=== PATIENT | female | born 1940 | race Hispanic/Latino ===

== ENCOUNTER 2018-12-27 18:16 | Inpatient (IN) | payer MEDICARE | END 2019-01-03 18:35 | LOC: EDH 18:16 → 2DH 12-28 00:39 → EDHIP 20:30 | DX: I21.4 Non-ST elevation (NSTEMI) myocardial infarction (principal); J12.1 Respiratory syncytial virus pneumonia; J44.0 Chronic obstructive pulmonary disease with (acute) lower respiratory infection; J44.1 Chronic obstructive pulmonary disease with (acute) exacerbation; J20.9 Acute bronchitis, unspecified; E11.51 Type 2 diabetes mellitus with diabetic peripheral angiopathy without gangrene; E11.22 Type 2 diabetes mellitus with diabetic chronic kidney disease; N18.2 Chronic kidney disease, stage 2 (mild); I12.9 Hypertensive chronic kidney disease with stage 1 through stage 4 chronic kidney disease, or unspecified chronic kidney disease; E66.9 Obesity, unspecified; E78.5 Hyperlipidemia, unspecified; D64.9 Anemia, unspecified; D50.9 Iron deficiency anemia, unspecified ==

== ENCOUNTER 2019-04-10 21:26 | Emergency (ER) | payer MEDICARE ==
[~2019-04-10 21:26] MED LIST: ALBU8.5H8 IH; ATEN25TA PO; BUDE10.22 IH; BUSP5TAB3 PO; CEPH500C2 PO; CILO100T PO; D3 PO; ESOM40CA54 PO; GUAI-1063 PO; INSU100I15 SQ; INSU100I21 SQ; LEVA1.2542 IH; LEVO125T11 PO; LOSA25TA41 PO; MECL-129 PO; MEDROL PO; METF-446 PO; OXYB5TAB PO; SERT25TA5 PO; TRAM50TA4 PO
[2019-04-10 22:14] LABS: BASOPHILS % (AUTO) 0.5 % (0.0-5.0); EOSINOPHILS % (AUTO) 2.4 % (0.0-8.0); HEMATOCRIT 33.9 % (36-48); MEAN CORPUSCULAR HEMOGLOBIN 26.7 pg (27.0-33.0); MEAN CORPUSCULAR HGB CONC 32.8 g/dL (32.0-36.0); MEAN CORPUSCULAR VOLUME 81.4 fL (79-99); MONOCYTES % (AUTO) 6.2 % (3.0-13.0); NEUTROPHILS % (AUTO) 65.9 % (40.0-77.0); PLATELET COUNT (AUTO) 230 K/uL (130-400); RED BLOOD CELL COUNT(AUTO) 4.17 MIL/uL (4.00-5.50); RED CELL DISTRIBUTION WIDTH 14.6 % (11.0-15.5); WHITE BLOOD COUNT (AUTO) 10.6 K/uL (4.8-10.8)
[2019-04-10 22:32] LABS: CREATININE 1.1 mg/dL (0.5-1.5); POTASSIUM 4.4 mmol/L (3.5-5.1)
[2019-04-10 22:34] LABS: INR 0.91 (0.85-1.15); PARTIAL THROMBOPLASTIN TIME 28.4 SEC (26.3-35.5); PROTHROMBIN TIME 9.6 SEC (9.6-11.6)
[2019-04-10 22:37] LABS: ALBUMIN 3.4 g/dL (3.5-5.0); BILIRUBIN,TOTAL 0.2 mg/dL (0.2-1.0)
[2019-04-10 22:42] LABS: B-TYPE NATRIURETIC PEPTIDE 41 pg/mL (0-100)
== END 2019-04-11 00:01 | disposition home or self-care (01) ==
LOC: EDH 21:26
DX: E11.51 Type 2 diabetes mellitus with diabetic peripheral angiopathy without gangrene (principal); R20.2 Paresthesia of skin; I10 Essential (primary) hypertension; I25.10 Atherosclerotic heart disease of native coronary artery without angina pectoris; E07.9 Disorder of thyroid, unspecified; E78.5 Hyperlipidemia, unspecified; E11.9 Type 2 diabetes mellitus without complications
CPT/HCPCS: 36415; 70450; 71045; 72125; 80053; 82550; 83880; 84484; 85025; 85610; 85730; 93005

== ENCOUNTER 2019-04-21 09:25 | Day surgery (SDC) | payer MEDICARE ==
[2019-04-17 11:29] VITALS: BP 122/56
[2019-04-17 11:30] VITALS: BP 122/56
[2019-04-17 11:33] LABS: BASOPHILS % (AUTO) 0.3 % (0.0-5.0); HEMATOCRIT 33.2 % (36-48); MEAN CORPUSCULAR HEMOGLOBIN 26.6 pg (27.0-33.0); MEAN CORPUSCULAR HGB CONC 32.6 g/dL (32.0-36.0); MEAN CORPUSCULAR VOLUME 81.5 fL (79-99); MONOCYTES % (AUTO) 6.8 % (3.0-13.0); NEUTROPHILS % (AUTO) 70.9 % (40.0-77.0); PLATELET COUNT (AUTO) 254 K/uL (130-400); RED BLOOD CELL COUNT(AUTO) 4.08 MIL/uL (4.00-5.50); RED CELL DISTRIBUTION WIDTH 14.7 % (11.0-15.5); WHITE BLOOD COUNT (AUTO) 11.4 K/uL (4.8-10.8)
[2019-04-17 11:35] LABS: CREATININE 1.1 mg/dL (0.5-1.5); POTASSIUM 4.3 mmol/L (3.5-5.1)
[2019-04-17 11:45] LABS: INR 0.9 (0.85-1.15); PARTIAL THROMBOPLASTIN TIME 29.1 SEC (26.3-35.5); PROTHROMBIN TIME 9.5 SEC (9.6-11.6)
[2019-04-17 11:56] LABS: APPEARANCE,URINE Clear (CLEAR); BILIRUBIN,URINE Negative (NEGATIVE); COLOR,URINE Yellow (YELLOW); GLUCOSE, URINE (UA) Negative (NEGATIVE); KETONES,URINE Trace mg/dL (NEGATIVE); LEUKOCYTE ESTERASE ,URINE Small (NEGATIVE); NITRATE,URINE Negative (NEGATIVE); OCCULT BLOOD,URINE Negative (NEGATIVE); PROTEIN,URINE Negative (NEGATIVE)
[2019-04-17 12:02] LABS: BACTERIA,URINE Few /HPF (None Seen); RBC,URINE 0-1 /HPF (0-1); SQUAMOUS EPITHELIAL CELL,UR Few /HPF (0-2); WBC,URINE 0-1 /HPF (0-1)
--- NOTE | 2019-04-18 10:44 | NUR ---
LABS ABNORMAL UA, AND WBC REPORTED TO IGOR WALSH, NO FURTHER ORDERS GIVEN,
[~2019-04-21] VITALS: Ht 162.6 cm; Wt 85.7 kg
[2019-04-21] VITALS (12 sets, daily range): BP systolic 123–163; BP diastolic 46–74
[~2019-04-21 09:25] MED LIST changes: -ATEN25TA PO; +ATEN50TA PO; -CEPH500C2 PO; +CHOL50004 PO; -D3 PO; -GUAI-1063 PO; -LEVA1.2542 IH; +LIFI1DRO OU; +MECL-111 PO; -MECL-129 PO; -MEDROL PO; +METF-444 PO; -METF-446 PO; +THEO400T3 PO; +UMEC1DIS IH
[2019-04-21] MEDS ORDERED: SODIUM CHLORIDE 0.9% 1000ML 1,000 ML IV ONE (10:56)
[2019-04-21] MEDS ORDERED: IOHEXOL 350 MG/ML 100ML INFUS..BTL IV ONE (13:26)
[2019-04-21] MEDS ORDERED: NITROGLYCERIN 5 MG/ML 10 ML VIAL IV ONE (13:26)
[2019-04-21] MEDS ORDERED: LIDOCAINE HCL 2% 20ML ONE (13:26)
[2019-04-21] MEDS ORDERED: IOHEXOL-350 50ML VIAL IV ONE (13:26)
[2019-04-21] MEDS ORDERED: HEPARIN SODIUM 1000UNIT/ML 10ML VIAL ONE (13:37)
[2019-04-21] MEDS ORDERED: VERAPAMIL HCL 2.5 MG/ML VIAL ONE (13:37)
[2019-04-21] MEDS ORDERED: MIDAZOLAM HCL 1 MG/ML 2ML VIAL ONE (14:06)
[2019-04-21] MEDS ORDERED: FENTANYL CITRATE PF 50 MCG/1 ML 2ML VIAL ONE (14:13)
[2019-04-21] MEDS ORDERED: BIVALIRUDIN 250 MG/VIAL IV ONE (14:39)
[2019-04-21] MEDS ORDERED: SODIUM CHLORIDE 0.9% 1000ML 1,000 ML IV SCH (14:58)
[2019-04-21] MEDS ORDERED: GLUCAGON 1MG KIT 1 MG ML IM PRN (15:00)
[2019-04-21] MEDS ORDERED: DEXTROSE 50%-WATER 50 ML DISP.SYRIN IV PRN (15:00)
--- NOTE | 2019-04-21 15:15 | NUR ---
PATIENT RETURNED FROM TRANSLITERATOR IN NO DISTRESS, RIGHT RADIAL BAND SHOWS NO ACTIVE BLEEDING NOTED.DR. LEWIS IN TO TALK TO PATIENT AND FAMILY. PLAN DISCUSSED WITH PATIENT AND FAMILY, THEY VERBALIZED UNDERSTANDING. PER PATIENT AND FAMILY THEY WANT TO LEAVE TODAY AND WILL GO SEE DR. LEWSI TOMORROW. CALLED ALEXANDER MERRITT RN OF DR. ALEXANDER, PT TO GO HOME AND TO BE SEEN OUT PATIENT. BOTH PATIENT AND FAMILY VERBALIZED UNDERSTANDING OF PLAN TO GO SEE DR. LEWIS TOMORROW AND TO SEE DR. ALEXANDER OU PATIENT.
--- NOTE | 2019-04-21 16:25 | NUR ---
REMOVED 2 ML OF FROM RIGHT RADIAL BAND, NO SIGNS OF BLEEDING OR HEMATOMA TO RIGHT WRIST.
--- NOTE | 2019-04-21 16:40 | NUR ---
REMOVED 2 ML OF FROM RIGHT RADIAL BAND, NO SIGNS OF BLEEDING OR HEMATOMA TO RIGHT WRIST.
--- NOTE | 2019-04-21 16:55 | NUR ---
REMOVED 2 ML OF AIR FROM RIGHT RADIAL BAND, NO SIGNS OF BLEEDING OR HEMATOMA TO RIGHT WRIST.
--- NOTE | 2019-04-21 17:10 | NUR ---
REMOVED 2 ML OF AIR FROM RIGHT RADIAL BAND, NO SIGNS OF BLEEDING OR HEMATOMA TO RIGHT WRIST.
--- NOTE | 2019-04-21 17:25 | NUR ---
REMOVED 2 ML OF FROM RIGHT RADIAL BAND, NO SIGNS OF BLEEDING OR HEMATOMA TO RIGHT WRIST.
--- NOTE | 2019-04-21 17:40 | NUR ---
REMOVED 2 ML OF FROM RIGHT RADIAL BAND, NO SIGNS OF BLEEDING OR HEMATOMA TO RIGHT WRIST.
--- NOTE | 2019-04-21 17:55 | NUR ---
REMOVED 2 ML OF FROM RIGHT RADIAL BAND, NO SIGNS OF BLEEDING OR HEMATOMA TO RIGHT WRIST.
--- NOTE | 2019-04-21 18:10 | NUR ---
REMOVED 2 ML OF FROM RIGHT RADIAL BAND, NO SIGNS OF BLEEDING OR HEMATOMA TO RIGHT WRIST.
--- NOTE | 2019-04-21 18:30 | NUR ---
DRESSING TO RIGHT WRIST SHOWS NO ACTIVE BLEEDING OR HEMATOMA. DRESSING IS CLEAN AND DRY. PATIENT STATES FEELING WELL. NO CHEST PAIN, NO SOB
--- NOTE | 2019-04-21 19:00 | NUR ---
DRESSING TO RIGHT WRIST IS CLEAN AND DRY, NI SIGNS OF ACTIVE BLEEDING OR HEMATOMA.
== END 2019-04-21 19:27 | disposition home or self-care (01) ==
LOC: DAH 09:25
PROVIDERS: ATTEND Internal Medicine Cardiovascular Disease
DX: I25.118 Atherosclerotic heart disease of native coronary artery with other forms of angina pectoris (principal); E78.00 Pure hypercholesterolemia, unspecified; K21.9 Gastro-esophageal reflux disease without esophagitis; E11.40 Type 2 diabetes mellitus with diabetic neuropathy, unspecified; I73.9 Peripheral vascular disease, unspecified; J44.9 Chronic obstructive pulmonary disease, unspecified; E11.22 Type 2 diabetes mellitus with diabetic chronic kidney disease; I12.9 Hypertensive chronic kidney disease with stage 1 through stage 4 chronic kidney disease, or unspecified chronic kidney disease; N18.9 Chronic kidney disease, unspecified; Z98.51 Tubal ligation status; Z79.899 Other long term (current) drug therapy; Z95.5 Presence of coronary angioplasty implant and graft; Z98.890 Other specified postprocedural states; Z87.891 Personal history of nicotine dependence; Z79.84 Long term (current) use of oral hypoglycemic drugs; Z82.5 Family history of asthma and other chronic lower respiratory diseases; Z82.49 Family history of ischemic heart disease and other diseases of the circulatory system; Z83.3 Family history of diabetes mellitus; Z82.3 Family history of stroke
CPT/HCPCS: 36415; 71045; 80048; 81001; 82948 ×2; 85025; 85610; 85730; 93005; 93458; A4606; A4649; C1769; C1894; J1644 ×2; J2250; J3010; J3490 ×3; J7030; Q9965 ×2; Q9967 ×2; 99156; 99157; J0583

== ENCOUNTER 2019-07-11 07:51 | Emergency (ER) | payer MEDICARE ==
[~2019-07-11 07:51] MED LIST changes: +ASPI-891 PO; -ATEN50TA PO; +ATOR20TA65 PO; -BUDE10.22 IH; -CHOL50004 PO; -CILO100T PO; +FURO20TA6 PO; -LIFI1DRO OU; -LOSA25TA41 PO; -MECL-111 PO; +METO25 PO; -OXYB5TAB PO; +POTA20TA12 PO; +TICA90TA PO
[2019-07-11] MEDS ORDERED: PROMETHAZINE HCL 25 MG/ML 1ML AMPULE IM ONE (07:52)
[2019-07-11 08:15] LABS: BASOPHILS % (AUTO) 0.7 % (0.0-5.0); EOSINOPHILS % (AUTO) 1.7 % (0.0-8.0); HEMATOCRIT 34.8 % (36-48); LYMPHOCYTES % (AUTO) 16.4 % (21.0-51.0); MEAN CORPUSCULAR HGB CONC 33.1 g/dL (32.0-36.0); MEAN CORPUSCULAR VOLUME 78.6 fL (79-99); MONOCYTES % (AUTO) 5.9 % (3.0-13.0); NEUTROPHILS % (AUTO) 75.3 % (40.0-77.0); PLATELET COUNT (AUTO) 204 K/uL (130-400); RED BLOOD CELL COUNT(AUTO) 4.43 MIL/uL (4.00-5.50); RED CELL DISTRIBUTION WIDTH 14.9 % (11.0-15.5); WHITE BLOOD COUNT (AUTO) 10.2 K/uL (4.8-10.8)
[2019-07-11] MEDS ORDERED: MECLIZINE HCL 25 MG TABLET ONE (08:36)
[2019-07-11 09:01] LABS: CREATININE 0.9 mg/dL (0.5-1.5); POTASSIUM 4.2 mmol/L (3.5-5.1)
[2019-07-11 09:08] LABS: ALBUMIN 3.1 g/dL (3.5-5.0); BILIRUBIN,TOTAL 0.5 mg/dL (0.2-1.0)
== END 2019-07-11 10:07 | disposition home or self-care (01) ==
LOC: EDH 07:51
DX: H81.10 Benign paroxysmal vertigo, unspecified ear (principal); E11.9 Type 2 diabetes mellitus without complications; E78.5 Hyperlipidemia, unspecified; I10 Essential (primary) hypertension; E07.9 Disorder of thyroid, unspecified; F32.9 Major depressive disorder, single episode, unspecified; I25.10 Atherosclerotic heart disease of native coronary artery without angina pectoris
CPT/HCPCS: 36415; 80053; 82550; 84484; 85025; 93005; 96372; 99285; J2550

== ENCOUNTER → 2019-07-16 | Outpatient (CLI) | payer MEDICARE | END | disposition home or self-care (01) | LOC: OIH 13:12 | PROVIDERS: ATTEND Internal Medicine Cardiovascular Disease | DX: I11.0 Hypertensive heart disease with heart failure (principal); I50.20 Unspecified systolic (congestive) heart failure; I20.1 Angina pectoris with documented spasm; M41.84 Other forms of scoliosis, thoracic region | CPT/HCPCS: 71046 ==

== ENCOUNTER → 2019-09-27 | Outpatient (CLI) | payer MEDICARE | END | disposition home or self-care (01) | LOC: OIH 14:20 | PROVIDERS: ATTEND Internal Medicine Cardiovascular Disease | DX: I21.01 ST elevation (STEMI) myocardial infarction involving left main coronary artery (principal); Z95.1 Presence of aortocoronary bypass graft | CPT/HCPCS: 93306 ==

== ENCOUNTER 2019-10-06 08:22 | Emergency (ER) | payer MEDICARE ==
[2019-10-06 08:58] LABS: BASOPHILS % (AUTO) 0.4 % (0.0-5.0); EOSINOPHILS % (AUTO) 1.1 % (0.0-8.0); HEMATOCRIT 33.3 % (36-48); LYMPHOCYTES % (AUTO) 18.3 % (21.0-51.0); MEAN CORPUSCULAR HEMOGLOBIN 25.1 pg (27.0-33.0); MEAN CORPUSCULAR HGB CONC 32.7 g/dL (32.0-36.0); MEAN CORPUSCULAR VOLUME 76.7 fL (79-99); MONOCYTES % (AUTO) 6.5 % (3.0-13.0); NEUTROPHILS % (AUTO) 73.7 % (40.0-77.0); NUCLEATED RED BLOOD CELLS 0.1 % (0.0-0.19); PLATELET COUNT (AUTO) 252 K/uL (130-400); RED BLOOD CELL COUNT(AUTO) 4.35 MIL/uL (4.00-5.50); RED CELL DISTRIBUTION WIDTH 15.3 % (11.0-15.5); WHITE BLOOD COUNT (AUTO) 11.4 K/uL (4.8-10.8)
[2019-10-06 09:13] LABS: INR 0.96 (0.85-1.15); PARTIAL THROMBOPLASTIN TIME 25.9 SEC (26.3-35.5); PROTHROMBIN TIME 10.1 SEC (9.6-11.6)
[2019-10-06 09:15] LABS: POTASSIUM 3.8 mmol/L (3.5-5.1)
[2019-10-06 09:16] LABS: B-TYPE NATRIURETIC PEPTIDE 90 pg/mL (0-100)
[2019-10-06 09:19] LABS: ALBUMIN 3.2 g/dL (3.5-5.0); BILIRUBIN,TOTAL 0.4 mg/dL (0.2-1.0); TOTAL PROTEIN, SERUM 7.3 g/dL (6.0-8.3)
[2019-10-06] MEDS ORDERED: KETOROLAC TROMETHAMINE 15MG/ML ONE (09:54)
[2019-10-06] MEDS ORDERED: CYCLOBENZAPRINE HCL 10 MG TABLET ONE (09:55)
== END 2019-10-06 10:58 | disposition home or self-care (01) ==
LOC: EDH 08:22
DX: M50.30 Other cervical disc degeneration, unspecified cervical region (principal); E11.9 Type 2 diabetes mellitus without complications; M25.512 Pain in left shoulder; I25.10 Atherosclerotic heart disease of native coronary artery without angina pectoris; E78.5 Hyperlipidemia, unspecified; I10 Essential (primary) hypertension; Z98.890 Other specified postprocedural states; Z95.1 Presence of aortocoronary bypass graft; Z87.891 Personal history of nicotine dependence; Z88.8 Allergy status to other drugs, medicaments and biological substances
CPT/HCPCS: 36415; 71045; 72125; 80053; 82550; 83880; 84484; 85025; 85610; 85730; 93005; 96374; 99285; J1885

== ENCOUNTER 2019-10-26 10:24 | Emergency (ER) | payer MEDICARE ==
[2019-10-26] MEDS ORDERED: DIAZEPAM 2 MG TAB ONE (10:35)
[2019-10-26] MEDS ORDERED: KETOROLAC TROMETHAMINE 30MG/ML ONE (10:35)
[2019-10-26] MEDS ORDERED: CYCLOBENZAPRINE HCL 10 MG TABLET ONE (11:40)
== END 2019-10-26 12:28 | disposition home or self-care (01) ==
LOC: EDH 10:24
DX: M25.512 Pain in left shoulder (principal); E11.9 Type 2 diabetes mellitus without complications; E78.5 Hyperlipidemia, unspecified; I10 Essential (primary) hypertension; I25.10 Atherosclerotic heart disease of native coronary artery without angina pectoris; F32.9 Major depressive disorder, single episode, unspecified; Z98.890 Other specified postprocedural states; Z87.891 Personal history of nicotine dependence; Z88.6 Allergy status to analgesic agent
CPT/HCPCS: 93005; 96372; 99283; J1885; 96374

== ENCOUNTER → 2020-10-12 | Outpatient (CLI) | payer MEDICARE | END | disposition home or self-care (01) | LOC: SHCH 10:31 | PROVIDERS: ATTEND Internal Medicine Cardiovascular Disease | DX: I65.23 Occlusion and stenosis of bilateral carotid arteries (principal) | CPT/HCPCS: 93880 ==

== ENCOUNTER → 2021-03-15 | Outpatient (CLI) | payer MEDICARE ==
[~2021-03-15] MED LIST changes: +SERT-438 PO; -SERT25TA5 PO
== END | disposition home or self-care (01) ==
LOC: SHCH 13:16
PROVIDERS: ATTEND Internal Medicine Cardiovascular Disease
DX: R60.9 Edema, unspecified (principal)
CPT/HCPCS: 93970

== ENCOUNTER 2022-02-10 14:28 | Emergency (ER) | payer OTHER, MEDICARE ==
[~2022-02-10] VITALS: Ht 152.4 cm; Wt 90.7 kg
[~2022-02-10 14:28] MED LIST changes: +POTA-192 PO; -POTA20TA12 PO
[2022-02-10 16:01] VITALS: BP 115/65
== END 2022-02-10 16:02 | disposition home or self-care (01) ==
LOC: EDH 14:28
DX: S30.0XXA Contusion of lower back and pelvis, initial encounter (principal); M85.80 Other specified disorders of bone density and structure, unspecified site; E11.9 Type 2 diabetes mellitus without complications; E78.00 Pure hypercholesterolemia, unspecified; I10 Essential (primary) hypertension; Z79.82 Long term (current) use of aspirin; Z79.84 Long term (current) use of oral hypoglycemic drugs; Z79.899 Other long term (current) drug therapy; Z79.4 Long term (current) use of insulin; Z98.890 Other specified postprocedural states; W05.0XXA Fall from non-moving wheelchair, initial encounter; Y93.89 Activity, other specified; Y92.89 Other specified places as the place of occurrence of the external cause; Y99.8 Other external cause status
CPT/HCPCS: 72100; 72220

== ENCOUNTER 2022-10-21 11:23 | Emergency (ER) | payer OTHER, MEDICARE ==
[~2022-10-21] VITALS: Ht 167.6 cm; Wt 68.0 kg
[2022-10-21 11:25] VITALS: BP 15/18
[2022-10-21 11:49] LABS: BASOPHILS % (AUTO) 0.3 % (0.0-5.0); EOSINOPHILS % (AUTO) 1.2 % (0.0-8.0); HEMATOCRIT 37.7 % (36-48); LYMPHOCYTES % (AUTO) 10.5 % (21.0-51.0); MEAN CORPUSCULAR HEMOGLOBIN 19.7 pg (27.0-33.0); MEAN CORPUSCULAR HGB CONC 27.9 g/dL (32.0-36.0); MEAN CORPUSCULAR VOLUME 70.6 fL (79-99); MONOCYTES % (AUTO) 5.6 % (3.0-13.0); PLATELET COUNT (AUTO) 222 K/uL (130-400); RED BLOOD CELL COUNT(AUTO) 5.34 MIL/uL (4.00-5.50); RED CELL DISTRIBUTION WIDTH 18.6 % (11.0-15.5); WHITE BLOOD COUNT (AUTO) 11.3 K/uL (4.8-10.8)
[2022-10-21 11:56] LABS: POTASSIUM 3.8 mmol/L (3.5-5.1)
[2022-10-21 12:06] LABS: ALBUMIN 3.2 g/dL (3.5-5.0); TOTAL PROTEIN, SERUM 7.5 g/dL (6.0-8.3)
[2022-10-21 12:49] LABS: APPEARANCE,URINE CLOUDY (CLEAR); BILIRUBIN,URINE NEGATIVE (NEGATIVE); COLOR,URINE LIGHT-YELLOW (YELLOW); GLUCOSE, URINE (UA) >=1000 mg/dL (NEGATIVE); KETONES,URINE NEGATIVE (NEGATIVE); LEUKOCYTE ESTERASE ,URINE 500 Leu/uL (NEGATIVE); NITRATE,URINE 2+ (NEGATIVE); OCCULT BLOOD,URINE NEGATIVE (NEGATIVE); PROTEIN,URINE NEGATIVE (NEGATIVE); UROBILINOGEN,URINE 0.2 mg/dL (0.2-1.0)
[2022-10-21] MEDS ORDERED: TRAMADOL HCL 50 MG TABLET PO ONE (13:00)
[2022-10-21] MEDS ORDERED: MACR100 PO (13:08)
[2022-10-21 13:12] LABS: BACTERIA,URINE MOD /HPF (None Seen); MUCUS,URINE RARE LPF (None Seen); SQUAMOUS EPITHELIAL CELL,UR RARE /HPF (0-2); WBC,URINE >100 /HPF (0-1)
== END 2022-10-21 13:25 | disposition home or self-care (01) ==
LOC: EDH 11:23
DX: N39.0 Urinary tract infection, site not specified (principal); E11.9 Type 2 diabetes mellitus without complications; E78.00 Pure hypercholesterolemia, unspecified; I10 Essential (primary) hypertension; Z79.82 Long term (current) use of aspirin; Z79.84 Long term (current) use of oral hypoglycemic drugs; Z95.1 Presence of aortocoronary bypass graft
CPT/HCPCS: 36415; 80053; 81001; 84484; 85025; 87077; 87088; 87186; 93005

== ENCOUNTER 2022-10-21 14:07 | Emergency (ER) | payer OTHER, MEDICARE ==
[~2022-10-21] VITALS: Ht 165.1 cm; Wt 81.6 kg
[~2022-10-21 14:07] MED LIST changes: +MACR100 PO
[2022-10-21] MEDS ORDERED: MORPHINE 4 MG SYG IM ONE (17:00)
[2022-10-21] MEDS ORDERED: ONDANSETRON ODT 4MG TAB SL ONE (17:00)
[2022-10-21 18:44] VITALS: BP 159/75
== END 2022-10-21 18:50 | disposition home or self-care (01) ==
LOC: EDH 14:07
DX: N39.0 Urinary tract infection, site not specified (principal); M19.90 Unspecified osteoarthritis, unspecified site; E11.40 Type 2 diabetes mellitus with diabetic neuropathy, unspecified; E78.00 Pure hypercholesterolemia, unspecified; G89.29 Other chronic pain; I10 Essential (primary) hypertension; Z79.4 Long term (current) use of insulin; Z79.82 Long term (current) use of aspirin; Z79.84 Long term (current) use of oral hypoglycemic drugs; Z95.1 Presence of aortocoronary bypass graft
CPT/HCPCS: 96372; 99283; J2270

== ENCOUNTER 2023-02-12 12:10 | Emergency (ER) | payer OTHER, MEDICARE ==
[~2023-02-12] VITALS: Ht 165.1 cm; Wt 79.4 kg
[~2023-02-12 12:10] MED LIST changes: -INSU100I21 SQ; +INSU100I22 SQ
[2023-02-12 13:46] LABS: BASOPHILS % (AUTO) 0.3 % (0.0-5.0); EOSINOPHILS % (AUTO) 1.3 % (0.0-8.0); HEMATOCRIT 36.7 % (36-48); LYMPHOCYTES % (AUTO) 14.7 % (21.0-51.0); MEAN CORPUSCULAR HEMOGLOBIN 20.3 pg (27.0-33.0); MEAN CORPUSCULAR HGB CONC 28.3 g/dL (32.0-36.0); MEAN CORPUSCULAR VOLUME 71.5 fL (79-99); MONOCYTES % (AUTO) 4.9 % (3.0-13.0); NEUTROPHILS % (AUTO) 78.4 % (40.0-77.0); PLATELET COUNT (AUTO) 235 K/uL (130-400); RED BLOOD CELL COUNT(AUTO) 5.13 MIL/uL (4.00-5.50); RED CELL DISTRIBUTION WIDTH 18.9 % (11.0-15.5); WHITE BLOOD COUNT (AUTO) 9.3 K/uL (4.8-10.8)
[2023-02-12] MEDS ORDERED: 0.9%NACL 1000ML 1,000 ML IV ONE (14:00)
[2023-02-12 14:03] LABS: ALBUMIN 3.4 g/dL (3.5-5.0); MAGNESIUM 1.8 mg/dL (1.80-2.40); POTASSIUM 4.2 mmol/L (3.5-5.1); TOTAL PROTEIN, SERUM 7.5 g/dL (6.0-8.3)
[2023-02-12 14:06] LABS: APPEARANCE,URINE CLEAR (CLEAR); BILIRUBIN,URINE NEGATIVE (NEGATIVE); COLOR,URINE COLORLESS (YELLOW); GLUCOSE, URINE (UA) >=1000 mg/dL (NEGATIVE); KETONES,URINE NEGATIVE (NEGATIVE); LEUKOCYTE ESTERASE ,URINE NEGATIVE Leu/uL (NEGATIVE); NITRATE,URINE NEGATIVE (NEGATIVE); OCCULT BLOOD,URINE NEGATIVE (NEGATIVE); PH,URINE 7.5 (5.0-8.0); PROTEIN,URINE NEGATIVE (NEGATIVE); UROBILINOGEN,URINE 0.2 mg/dL (0.2-1.0)
[2023-02-12] MEDS ORDERED: ZOSYN 3.375GM +NS 50ML IVPB ONE (16:35)
[2023-02-12] MEDS ORDERED: CEPH500B PO (17:12)
[2023-02-12 19:24] VITALS: BP 132/50
== END 2023-02-12 17:48 | disposition home or self-care (01) ==
LOC: EDH 12:10
DX: E86.9 Volume depletion, unspecified (principal); R53.1 Weakness; E87.20 Acidosis, unspecified; I10 Essential (primary) hypertension; E11.9 Type 2 diabetes mellitus without complications; E78.00 Pure hypercholesterolemia, unspecified; M19.90 Unspecified osteoarthritis, unspecified site; Z20.822 Contact with and (suspected) exposure to COVID-19; Z79.82 Long term (current) use of aspirin; Z79.84 Long term (current) use of oral hypoglycemic drugs; Z79.899 Other long term (current) drug therapy; Z95.1 Presence of aortocoronary bypass graft; Z90.89 Acquired absence of other organs; Z98.890 Other specified postprocedural states
CPT/HCPCS: 99285; 83735; 84484; 80053; 85025; 87040 ×2; 87088; 87804 ×2; 83605 ×2; 81001; 36415; 87635; 71045; 96360; 93005; C9803; J7030

== ENCOUNTER 2023-06-17 16:00 | Emergency (ER) | payer OTHER, MEDICARE ==
[~2023-06-17 16:00] MED LIST changes: +ACETAMINOPHEN WITH CODEINE 1 TAB TAB ONE; +CEPH500B PO
[2023-06-17] MEDS ORDERED: CEFTRIAXONE 1G VIAL ONE (18:16)
[2023-06-18 12:52] LABS: POTASSIUM 3.6 mmol/L (3.5-5.1)
[2023-06-18 12:53] LABS: CREATININE 1.2 mg/dL (0.5-1.5)
[2023-06-18 12:56] LABS: BASOPHILS # (AUTO) 0.06 K/uL (0.00-0.20); BASOPHILS % (AUTO) 0.5 % (0.0-5.0); EOSINOPHILS # (AUTO) 0.12 K/uL (0.00-0.70); HEMATOCRIT 38.1 % (36-48); IMMATURE GRANULOCYTE ABSOLUTE 0.05 K/uL (0-1); LYMPHOCYTES # (AUTO) 1.5 K/uL (1.0-4.8); MEAN CORPUSCULAR HEMOGLOBIN 18.9 pg (27.0-33.0); MEAN CORPUSCULAR HGB CONC 28.3 g/dL (32.0-36.0); MEAN CORPUSCULAR VOLUME 66.7 fL (79-99); MONOCYTES # (AUTO) 0.7 K/uL (0.1-1.0); MONOCYTES % (AUTO) 5.7 % (3.0-13.0); NEUTROPHILS # (AUTO) 9.8 K/uL (1.8-7.7); NEUTROPHILS % (AUTO) 80.4 % (40.0-77.0); PLATELET COUNT (AUTO) 265 K/uL (130-400); RED BLOOD CELL COUNT(AUTO) 5.71 MIL/uL (4.00-5.50); RED CELL DISTRIBUTION WIDTH 19.9 % (11.0-15.5); WHITE BLOOD COUNT (AUTO) 12.2 K/uL (4.8-10.8)
[2023-06-18 13:04] LABS: APPEARANCE,URINE CLOUDY (CLEAR); BILIRUBIN,URINE SMALL mg/dL (NEGATIVE); COLOR,URINE LIGHT-YELLOW (YELLOW); GLUCOSE, URINE (UA) >=1000 mg/dL (NEGATIVE); OCCULT BLOOD,URINE 1 (NEGATIVE); PH,URINE 5.5 (5.0-8.0); PROTEIN,URINE NEGATIVE (NEGATIVE)
[2023-06-18 13:05] LABS: ADD UA MICROSCOPIC YES; KETONES,URINE NEGATIVE (NEGATIVE); LEUKOCYTE ESTERASE ,URINE 500 Leu/uL (NEGATIVE); NITRATE,URINE NEGATIVE (NEGATIVE); UROBILINOGEN,URINE 0.2 mg/dL (0.2-1.0)
[2023-06-18 13:09] LABS: WBC,URINE 51-100 /HPF (0-1)
[2023-06-18 13:10] LABS: BACTERIA,URINE Rare /HPF (None Seen); MUCUS,URINE Rare LPF (None Seen); NON-SQUAMOUS EPITHELIAL CELL 2 /HPF (0-2); SQUAMOUS EPITHELIAL CELL,UR Few /HPF (0-2)
[2023-06-18 13:11] LABS: UNCLASSIFIED CRYSTAL 2 /HPF (None Seen)
== END 2023-06-17 18:40 | disposition home or self-care (01) ==
LOC: EDH 16:00
DX: N39.0 Urinary tract infection, site not specified (principal); M19.90 Unspecified osteoarthritis, unspecified site; M25.512 Pain in left shoulder; M25.562 Pain in left knee; E66.9 Obesity, unspecified; J44.9 Chronic obstructive pulmonary disease, unspecified; I10 Essential (primary) hypertension; E11.9 Type 2 diabetes mellitus without complications; I25.10 Atherosclerotic heart disease of native coronary artery without angina pectoris
CPT/HCPCS: 99285; 84484; 80048; 85025; 87088; 81001; 36415 ×2; 73562; 73030; 96372; 93005; J0696

== ENCOUNTER 2023-06-21 17:29 | Emergency (ER) | payer OTHER, MEDICARE ==
[~2023-06-21] VITALS: Ht 167.6 cm; Wt 72.6 kg
[~2023-06-21 17:29] MED LIST changes: -ACETAMINOPHEN WITH CODEINE 1 TAB TAB ONE
[2023-06-21] MEDS ORDERED: DIAZEPAM 5 MG/ML 2 ML SYG IVP ONE (18:30)
[2023-06-21] MEDS ORDERED: KETOROLAC 30MG VIAL (30MG/ML) IVP ONE (18:30)
[2023-06-21] MEDS ORDERED: SOLU-MEDROL 125MG VIAL IVP ONE (18:30)
[2023-06-21] MEDS ORDERED: FAMOTIDINE 20MG VIAL IV ONE (18:30)
[2023-06-21] MEDS ORDERED: METOCLOPRAMIDE 10 MG/2 ML VIAL IVP ONE (18:30)
[2023-06-21 19:03] VITALS: BP 143/79; PULSE 78; RESP 18; O2SAT 96
== END 2023-06-21 19:41 | disposition home or self-care (01) ==
LOC: EDH 17:29
DX: M19.012 Primary osteoarthritis, left shoulder (principal); E10.9 Type 1 diabetes mellitus without complications; E03.9 Hypothyroidism, unspecified; Z79.82 Long term (current) use of aspirin; Z79.84 Long term (current) use of oral hypoglycemic drugs; Z79.899 Other long term (current) drug therapy
CPT/HCPCS: 99284; 96374; 96375; J3490; J2930; J3360; J1885; J2765

== ENCOUNTER 2023-11-14 13:00 | Emergency (ER) | payer OTHER, MEDICARE ==
[~2023-11-14] VITALS: Ht 165.1 cm; Wt 86.2 kg
[2023-11-14] MEDS ORDERED: DEXAMETHASONE SOD PHOSPHATE 4 MG/ML 1ML VIAL IV ONE (15:30)
[2023-11-14] MEDS ORDERED: KETOROLAC 30MG VIAL (30MG/ML) IVP ONE (15:30)
[2023-11-14] MEDS ORDERED: MECLIZINE HCL 25 MG TABLET PO ONE (15:30)
[2023-11-14] MEDS ORDERED: METH4TAB3 PO (17:21)
[2023-11-14] MEDS ORDERED: MECL-302 PO (17:21)
[2023-11-14 18:46] VITALS: BP 148/82; PULSE 99; RESP 16; O2SAT 98
== END 2023-11-14 18:45 | disposition home or self-care (01) ==
LOC: EDH 13:00
DX: R42 Dizziness and giddiness (principal); M43.6 Torticollis
CPT/HCPCS: 99284; 96374; 96375; J1100; J1885

== ENCOUNTER 2024-11-17 16:06 | Emergency (ER) | payer OTHER, MEDICARE ==
[~2024-11-17] VITALS: Ht 160 cm; Wt 90.7 kg
[~2024-11-17 16:06] MED LIST changes: -ESOM40CA54 PO; +ESOM40CA66 PO; +MECL-302 PO; +METH4TAB3 PO
--- NOTE | 2024-11-17 16:42 | NUR ---
PT WAS REMOVED FROM THE EMS STRETCHER AND PLACED IN A W/C BY [facility]. NO AVAIALABLE ROOM. SHE IS SITTING CLOSE TO CHARGE NURSE STATION IN A W/C AT THIS MOMENT. SPRING CARBONE RN/ED DIRECTOR MADE AWARE.
--- NOTE | 2024-11-17 16:54 | EKG ---
[facility] Test Date: 2024-11-17 Test Time: 16:47:48 Pat Name: JUANITA CONNORS Department: [facility] Room: Gender: F Clinical Laboratory Medical Director: [id number] : 1940 Requested By: PABLO KINGSLEY Order Number: [id number] Reading MD: Brendan Moncada Measurements Intervals [place] Rate: 87 P: 51 VT: 209 QRS: -46 QRSD: 80 T: 82 QT: 365 QTc: 440 Interpretive Statements Sinus rhythm Inferior infarct, old Nonspecific STT abnormality Compared to ECG 06/17/2023 14:57:31 Sinus tachycardia no longer present Myocardial infarct finding still present Electronically Signed On 11-17-2024 22:06:06 QUILL WORKER by Brendan Moncada Please click the below link to view image of tracing.
--- NOTE | 2024-11-17 17:14 | ERN ---
General Chief Complaint: Fatigue Stated Complaint: GENERALIZED WEAKNESS Time Seen by MD: 16:23 History of Present Illness Initial Comments This is a case of 84-year-old female with a past medical history of CAD s/p CABG, diabetes mellitus type 2, high cholesterol, hypertensive heart disease who was brought to the ER by the EMS with the complaints of generalized body weakness. She states that she has been experiencing frontal headache associated with tearing of eyes, nausea, bilateral neck pain, generalized body weakness for the past 2 weeks which have progressively worsened. She also mentions experiencing increased frequency of urination, dry cough. She denies fever, chills, chest pain, palpitations, abdominal pain, burning sensation when urinating, constipation/diarrhea, tingling/numbing sensation/paresthesias in upper and lower extremities. Allergies: Coded Allergies: morphine (Unverified Allergy, Intermediate, 11/14/23) No Known Drug Allergies (Verified Allergy, Unknown, 12/27/18) Home Meds Active Scripts Meclizine HCl (Meclizine HCl) 25 Mg Tablet, 25 MG PO TID for vertigo, #30 TAB 0 Refills Prov:MIKE CARUSO NP 11/14/23 Methylprednisolone (Medrol) 4 Mg Tab.ds.pk, 4 MG PO , #1 UNIT Prov:MIKE CARUSO NP 11/14/23 Cephalexin Monohydrate (Keflex) 500 Mg Cap, 500 MG PO TID for 7 Days, #21 CAP 0 Refills Prov:SUSAN HAIDER MD 02/12/23 Nitrofurantoin/Nitrofuran Mac (Macrobid) 100 Mg Cap, 1 CAP PO BID for 7 Days, #14 CAP 0 Refills Prov:PABLO RUELASP 10/21/22 Ticagrelor (Brilinta) 90 Mg Tablet, 90 MG PO BID for 30 Days, #30 TAB 2 Refills Prov:DONTE ALVES MD 05/21/19 Potassium Chloride (K-Dur/Klor-Con) 20 Meq Ertab, 20 MEQ PO BID for 30 Days, #60 TAB.EC 0 Refills Prov:DONTE ALVES MD 05/21/19 Metoprolol Tartrate (Lopressor) 25 Mg Tab, 12.5 MG PO BID for 30 Days, #30 TAB 3 Refills Prov:DONTE ALVES MD 05/21/19 Furosemide (Lasix 20Mg Tab) 20 Mg Tablet, 20 MG PO BID@09,17 for 30 Days, #60 TAB 0 Refills Prov:DONTE ALVES MD 05/21/19 Atorvastatin Calcium (Atorvastatin Calcium) 20 Mg Tablet, 20 MG PO HS for 30 Days, #30 TAB 3 Refills Prov:DONTE ALVES MD 05/21/19 Aspirin (Aspirin EC) 325 Mg Tablet., 325 MG PO DAILY for 30 Days, #30 TAB Prov:DONTE ALVES MD 05/21/19 Reported Medications Esomeprazole Magnesium (Esomeprazole Magnesium) 40 Mg Capsule.dr, 40 MG PO DAILY, CAP 04/17/19 Theophylline Anhydrous (Theophylline) 400 Mg Tablet.er, 400 MG PO HS, TAB 04/17/19 Buspirone HCl (Buspirone HCl) 5 Mg Tablet, 5 MG PO BID, TAB 04/17/19 Metformin HCl (Metformin HCl) 500 Mg Tablet, 1000 MG PO BID, TAB 04/17/19 Sertraline HCl (Sertraline HCl) 25 Mg Tablet, 25 MG PO DAILY, TAB 04/17/19 Umeclidinium Brm/Vilanterol Tr (Anoro Ellipta 62.5-25 Mcg INH) 1 Each Disk.w.dev, 1 EACH IH DAILY, DISK 04/17/19 Insulin Detemir (Levemir Flextouch) 100 Unit/1 Ml Insuln.pen, 55 UNIT SQ HS, SYRINGE 12/28/18 Insulin Lispro (Humalog) 100 Unit/1 Ml Insuln.pen, 15 UNITS SQ BIDMEALS, SYRINGE 12/28/18 Albuterol Sulfate (Proair Hfa) 8.5 Gm Hfa.aer.ad, 2 PUFF IH TID 12/28/18 Levothyroxine Sodium (Levothyroxine Sodium) 125 Mcg Tablet, 125 MCG PO ACBKFST, TAB 12/28/18 Tramadol Hcl (Tramadol HCl) 50 Mg Tablet, 50 MG PO TID PRN for PAIN LEVEL 6 TO 10, TAB 12/28/18 Past Medical History Past Medical History: CAD, Diabetes-Type II, High Cholesterol, Heart Disease, Hypertension Medical History Other: VERTIGO Past Surgical History: CABG Family History Family History: Negative Social History Social History: Negative, Other Female( History) History: Not Applicable ROS Dictation CONSTITUTIONAL: No chills, no fever, generalized body weakness, frontal headache, no diaphoresis, no malaise. HEAD/FACE: No signs of trauma, bilateral neck pain. EENT: No eye pain, no blurred vision, no tearing, no double vision, no ear pain, no ear discharge, no nose pain, no nasal congestion, no throat pain, no throat swelling, no mouth pain. RESPIRATORY: Dry cough, no orthopnea, no SOB, no stridor, no wheezing. CARDIOVASCULAR: No chest pain, no edema, no palpitations, no syncope. GASTROINTESTINAL/ABDOMINAL: No abdominal pain, no constipation, no diarrhea, no nausea, no vomiting. GENITOURINARY: No abnormal discharge, no dysuria, no frequent urination, no hematuria. No complaints of pain in the genitals. MUSCULOSKELETAL: No back pain, no gout, no joint pain, no joint swelling, no muscle pain, no muscle stiffness, no neck pain. NEUROLOGICAL/PSYCH: No anxiety, not depressed, no emotional problem, no headache, no numbness, no pre-existing deficit, no history of seizures, no tremors, no weakness. HEMATOLOGIC/LYMPHATIC: Not anemic, no history of blood clots, no apparent bleeding, no bruising, glands not swollen. All Systems Negative, Except as Noted. Physical Exam Physical Exam Dictation Physical Exam Dictation VITAL SIGNS: Reviewed. GENERAL APPEARANCE: Alert, oriented x3, no acute distress, obese. HEAD AND FACE: Non-traumatic. EYES: PERRL, pink conjunctivas, eyelid no trauma, anterior chamber clear. NOSE: No discharge, no bleeding. OROPHARYNX: Mouth normal, , tongue pink. Pharynx clear, no erythema. Tonsils no exudates, no abscesses noted. Mucous membrane moist. NECK: Supple, non-tender, no thyromegaly, no masses, no JVD, no bruits. BREAST: Deferred. CHEST: No tenderness, no crepitus, no paradoxical movement, no retractions. LUNGS: Clear, well-ventilated, symmetric, no rales, no wheezing, no rhonchi, no stridor, good breath sounds bilaterally. HEART: Regular rate, regular rhythm, no murmur, no gallops. VASCULAR: No peripheral edema. ABDOMEN: Soft, positive bowel sounds, nondistended, no guarding, nontender, no rebound, RECTAL: Deferred. GENITAL: Deferred. NEUROLOGICAL: Normal speech, gross motor function intact, gross sensory function intact. MUSCULOSKELETAL: Neck nontender, full range of motion, back nontender, full range of motion. EXTREMITIES: Nontender, full range of motion. SKIN: Color pink, dry, no turgor, no rash, no lacerations, no abrasions, no contusions. LYMPHATICS: Deferred. Eyes Comment LEFT LATERAL HORIZONTAL NYSTAGMUS, SEVERE Results Laboratory and Microbiology Lab and Micro Result Laboratory Tests Test 11/17/24 17:10 11/17/24 17:17 11/17/24 19:37 Influenza Type A Antigen Negative For Type A Influenza Type B Antigen Negative For Type B SARS-CoV-2 Antigen (Rapid) PRESUMPTIVE NEGATIVE White Blood Count 8.4 K/uL (4.8-10.8) Red Blood Count 5.43 MIL/uL (4.00-5.50) Hemoglobin 11.3 g/dL (12.0-16.0) L Hematocrit 39.4 % (36-48) Mean Corpuscular Volume 72.6 fL (79-99) L Mean Corpuscular Hemoglobin 20.8 pg (27.0-33.0) L Mean Corpuscular Hemoglobin Concent 28.7 g/dL (32.0-36.0) L Red Cell Distribution Width 18.1 % (11.0-15.5) H Platelet Count 239 K/uL (130-400) Mean Platelet Volume 10.4 fL (7.5-10.5) Immature Granulocyte % (Auto) 0.4 % (0-1) Neutrophils (%) (Auto) 69.8 % (40.0-77.0) Lymphocytes (%) (Auto) 21.4 % (21.0-51.0) Monocytes (%) (Auto) 5.4 % (3.0-13.0) Eosinophils (%) (Auto) 2.6 % (0.0-8.0) Basophils (%) (Auto) 0.4 % (0.0-5.0) Neutrophils # (Auto) 5.8 K/uL (1.8-7.7) Lymphocytes # (Auto) 1.8 K/uL (1.0-4.8) Monocytes # (Auto) 0.5 K/uL (0.1-1.0) Eosinophils # (Auto) 0.22 K/uL (0.00-0.70) Basophils # (Auto) 0.03 K/uL (0.00-0.20) Absolute Immature Granulocyte (auto 0.03 K/uL (0-1) Nucleated Red Blood Cells 0.0 % (0.0-0.19) Red Blood Cell Morphology See comments Sodium Level 143 mmol/L (136-145) Potassium Level 4.0 mmol/L (3.5-5.1) Chloride Level 104 mmol/L (101-111) Carbon Dioxide Level 31 mmol/L (21-32) Blood Urea Nitrogen 13 mg/dL (7-18) Creatinine 0.8 mg/dL (0.5-1.0) Glomerular Filtration Rate Calc 73 mL/min (>90) Random Glucose 100 mg/dL (70-105) Total Calcium 8.9 mg/dL (8.5-10.1) Magnesium Level 1.90 mg/dL (1.80-2.40) Total Bilirubin 0.3 mg/dL (0.2-1.0) Aspartate Amino Transf (AST/SGOT) 14 U/L (10-37) Alanine Aminotransferase (ALT/SGPT) 9 U/L (12-78) L Alkaline Phosphatase 80 U/L (50-136) Total Creatine Kinase 26 U/L (21-232) # Total Protein 7.4 g/dL (6.0-8.3) Albumin 3.3 g/dL (3.5-5.0) L Urine Color COLORLESS (YELLOW) Urine Appearance CLEAR (CLEAR) Urine pH 6.5 (5.0-8.0) Urine Specific [place] 1.005 (1.001-1.031) Urine Protein NEGATIVE mg/dL (NEGATIVE) Urine Glucose (UA) 300 mg/dL (NEGATIVE) H Urine Ketones NEGATIVE mg/dL (NEGATIVE) Urine Occult Blood NEGATIVE (NEGATIVE) Urine Nitrate NEGATIVE (NEGATIVE) Urine Bilirubin NEGATIVE mg/dL (NEGATIVE) Urine Urobilinogen 0.2 mg/dL (0.2-1.0) Urine Leukocyte Esterase NEGATIVE [place]/uL Urine RBC None /HPF (0-1) Urine WBC 0-1 /HPF (0-1) Urine Bacteria None /HPF (None Seen) EKG/XRAY/US/CT/MRI EKG Comment EKG normal sinus rhythm/heart rate 87/axis normal/0 changes to leads two and three MDM MDM Potential differential diagnoses include: UTI/ELECTROLYTE IMBALANCE/DEHYDRATION/ACS/ARRHYTHMI/BENIGN POSITIONAL VERTIGO/LABYRINTHITIS Electrolyte imbalance Hypoglycemia Migraine TIA COVID-19 Anemia Assessment: We will order CBC to rule any anemia, infections and to evaluate the overall health of the patient. CMP was ordered in order to assess various electrolytes, kidney function, liver function ,protein levels and blood glucose levels, I will re-evaluate the patient after treatment and diagnostic exams have returned to determine whether they require further testing, can be safely discharged home, or need admission for further treatment and evaluation. Given the social determinants of health affecting care, including literacy, access to medical care, prescription drug management, and [id number] drugs, I will ensure that treatment plans are tailored accordingly. Revaluation :2215/PATIENT STATES SHE FEELS MARKEDLY IMPROVED AFTER SOLU-MEDROL AND MECLIZINE. Disposition: SHE WILL BE DISCHARGED HOME WITH HER DAUGHTER WITH POSITIONAL VERTIGO AND LABYRINTHITIS WITH MEDROL DOSE PACK/MECLIZINE/ZOFRAN DAUGHTER AT BEDSIDE MADE AWARE SHE NEEDS TO FOLLOW UP WITH NEURO ED Course Orders Procedure Category Date Status Time Cbc With Differential LAB 11/17/24 Complete 16:32 Comprehensive LAB 11/17/24 Complete Metabolic Panel 16:32 12 Lead Ekg Tracing- EKG 11/17/24 Resulted Technical 16:32 Chest 1vw RAD 11/17/24 Resulted 16:32 Urinalysis Profile LAB 11/17/24 Complete 16:32 Creatine Kinase, Total LAB 11/17/24 Complete 16:32 Magnesium LAB 11/17/24 Complete 16:32 Covid19 (Sars Antigen LAB 11/17/24 Complete Rapid) 16:38 Influenza Type A & B, LAB 11/17/24 Complete Rapid 16:38 Methylprednisolone PHA 11/17/24 Complete Succ 125mg (Solu-Medr 22:00 Meclizine Hcl 25 Mg PHA 11/17/24 Complete (Antivert 25 Mg) 22:00 Ondansetron 4mg Inj PHA 11/17/24 Complete (Zofran 4mg Inj) 22:00 Current Medications Medications (Trade) Dose Ordered Sig/Ava Route PRN Reason Start Time Stop Time Status Last Admin Dose Admin Meclizine HCl (ANTIvert 25 mg) 50 mg ONCE ONCE PO 11/17/24 22:00 11/17/24 22:01 DC 11/17/24 21:50 Methylprednisolone Sodium Succinate (Solu-medROL 125MG) 125 mg ONCE ONCE IVP 11/17/24 22:00 11/17/24 22:01 DC 11/17/24 21:49 Ondansetron HCl (zoFRAN 4MG INJ) 4 mg ONCE ONCE IVP 11/17/24 22:00 11/17/24 22:01 DC 11/17/24 21:49 Vital Signs Date Time Temp Pulse Resp B/P (MAP) Pulse Ox O2 Delivery O2 Flow Rate FiO2 11/17/24 19:16 97.7 65 18 162/68 96 Room Air* 0 11/17/24 17:20 97.7 65 18 157/78 98 Room Air* 0 21 11/17/24 16:07 85 17 153/81 96 Room Air 0 DX & DISP Disposition: Discharge Departure Impression: Primary Impression: Benign positional vertigo Additional Impressions: Labyrinthitis of left ear, Weakness, Glucosuria Condition: Stable Scripts Ondansetron (Ondansetron Odt) 4 Mg Tab.rapdis 4 MG PO Q6HPRN PRN for nausea, #16 TAB 0 Refills Prov: MIKE CARUSO NP 11/17/24 Methylprednisolone (Medrol) 4 Mg Tab.ds.pk 1 TAB PO AD for 6 Days, #21 TAB 0 Refills 6 on day 1 then reduce by one tablet daily until gone Prov: MIKE CARUSO NP 11/17/24 Meclizine HCl (Meclizine HCl) 25 Mg Tablet 25 MG PO TID for vertigo, #30 TAB 0 Refills Prov: MIKE CARUSO NP 11/17/24 Additional Instructions: FOLLOW-UP WITH PRIMARY CARE PROVIDER IN 1 TO 2 DAYS. TAKE MEDICATIONS DIRECTED HERE IN THE EMERGENCY ROOM. OKAY TO CONTINUE HOME MEDICATIONS UNLESS OTHERWISE DISCUSSED DURING YOUR VISIT IN THE EMERGENCY ROOM TODAY. RETURN TO YOUR NEAREST EMERGENCY ROOM IF SYMPTOMS WORSEN OR IF THERE IS NO IMPROVEMENT. CALL 911 IF YOU NEED IMMEDIATE ASSISTANCE. TAKE TYLENOL OR MOTRIN [id number] NEEDED AND IF NO CONTRAINDICATIONS ARE PRESENT. INCREASE ORAL HYDRATION. A WOUND CULTURE OR URINE CULTURE WAS ORDERED HERE IN THE EMERGENCY ROOM DEPARTMENT PLEASE FOLLOW-UP WITH PRIMARY CARE PROVIDER AND ADVISE THEM TO GET REPEAT PORTS FROM OUR FACILITY. IF YOU HAD ANY ALFREDO WRAP/SPLINTS THAT WERE APPLIED HERE, PLEASE DO NOT REMOVE THEM UNTIL YOU SEE YOUR PRIMARY CARE OR SPECIALTY. TAKE MECLIZINE EVERY8 HOURS FOR THREE DAYS. TAKE MEDROL DOSEPAK DIRECTED. FOLLOW UP WITH YOUR PRIMARY CARE DOCTOR IN THE NEXT 1-2 DAYS FOR NEURO OR ENT CONSULTATION Referrals: SOLO ROTHMAN DO (PCP) Time of Disposition: 22:19 I have reviewed the case, and I agree with, Diagnosis and Plan PABLO KINGSLEY MD Nov 17, 2024 17:14 MIKE CARUSO NP Nov 17, 2024 18:20
[2024-11-17 17:49] LABS: BASOPHILS # (AUTO) 0.03 K/uL (0.00-0.20); BASOPHILS % (AUTO) 0.4 % (0.0-5.0); EOSINOPHILS # (AUTO) 0.22 K/uL (0.00-0.70); EOSINOPHILS % (AUTO) 2.6 % (0.0-8.0); HEMATOCRIT 39.4 % (36-48); IMMATURE GRANULOCYTE ABSOLUTE 0.03 K/uL (0-1); LYMPHOCYTES # (AUTO) 1.8 K/uL (1.0-4.8); LYMPHOCYTES % (AUTO) 21.4 % (21.0-51.0); MEAN CORPUSCULAR HEMOGLOBIN 20.8 pg (27.0-33.0); MEAN CORPUSCULAR HGB CONC 28.7 g/dL (32.0-36.0); MEAN CORPUSCULAR VOLUME 72.6 fL (79-99); MONOCYTES # (AUTO) 0.5 K/uL (0.1-1.0); MONOCYTES % (AUTO) 5.4 % (3.0-13.0); NEUTROPHILS # (AUTO) 5.8 K/uL (1.8-7.7); NEUTROPHILS % (AUTO) 69.8 % (40.0-77.0); PLATELET COUNT (AUTO) 239 K/uL (130-400); RED BLOOD CELL COUNT(AUTO) 5.43 MIL/uL (4.00-5.50); RED CELL DISTRIBUTION WIDTH 18.1 % (11.0-15.5); WHITE BLOOD COUNT (AUTO) 8.4 K/uL (4.8-10.8)
[2024-11-17 17:57] LABS: CREATININE 0.8 mg/dL (0.5-1.0)
[2024-11-17 18:06] LABS: ALBUMIN 3.3 g/dL (3.5-5.0); BILIRUBIN,TOTAL 0.3 mg/dL (0.2-1.0); MAGNESIUM 1.9 mg/dL (1.80-2.40); TOTAL PROTEIN, SERUM 7.4 g/dL (6.0-8.3)
[2024-11-17 18:14] LABS: INFLUENZA TYPE A Negative For Type A (NEGATIVE); INFLUENZA TYPE B Negative For Type B (NEGATIVE)
[2024-11-17 18:16] LABS: COVID19 (SARS ANTIGEN RAPID) PRESUMPTIVE NEGATIVE (NEGATIVE)
--- NOTE | 2024-11-17 18:27 | HMCIMG ---
PORTABLE CHEST RADIOGRAPH INDICATION: COUGH COMPARISON: 02/12/2023 FINDINGS: Median sternotomy wires as well as fixation plates and screws are in appropriate alignment. Heart size is normal. The pulmonary vascularity and heron appear normal. No abnormal pulmonary parenchymal opacity or consolidation identified. No significant pleural effusion noted. No pneumothorax detected. IMPRESSION: No radiographic evidence for any acute cardiopulmonary process.
[2024-11-17 19:50] LABS: ADD UA MICROSCOPIC YES; APPEARANCE,URINE CLEAR (CLEAR); BILIRUBIN,URINE NEGATIVE (NEGATIVE); COLOR,URINE COLORLESS (YELLOW); GLUCOSE, URINE (UA) 300 mg/dL (NEGATIVE); KETONES,URINE NEGATIVE (NEGATIVE); LEUKOCYTE ESTERASE ,URINE NEGATIVE Leu/uL (NEGATIVE); NITRATE,URINE NEGATIVE (NEGATIVE); OCCULT BLOOD,URINE NEGATIVE (NEGATIVE); PH,URINE 6.5 (5.0-8.0); PROTEIN,URINE NEGATIVE (NEGATIVE); UROBILINOGEN,URINE 0.2 mg/dL (0.2-1.0)
[2024-11-17 19:51] LABS: MUCUS,URINE RARE LPF (None Seen); WBC,URINE 0-1 /HPF (0-1)
[2024-11-17] MEDS: ondanSETRON 4MG INJ IVP ONE (21:49)
[2024-11-17] MEDS: Solu-medROL 125MG VIAL IVP ONE (21:49)
[2024-11-17] MEDS: mecliZINE HCL 25 MG TABLET PO ONE (21:50)
[2024-11-17] MEDS ORDERED: METH4TAB3 PO (22:20)
[2024-11-17] MEDS ORDERED: ONDA-243 PO (22:20)
--- NOTE | 2024-11-17 22:32 | NUR ---
EMS WAS CALLED FOR RETURN TRIP AT THIS TIME
--- NOTE | 2024-11-18 02:08 | NUR ---
PATIENT CLEANED OF INCONTINENCE AND BEDDING CHANGED.
[2024-11-18 02:40] VITALS: BP 142/64; PULSE 64; RESP 16; TEMP 98; O2SAT 97
--- NOTE | 2024-11-18 02:44 | NUR ---
EMS HERE TO TRANSFER PATIENT
== END 2024-11-18 02:44 | disposition home or self-care (01) ==
LOC: EDH 16:06
DX: H81.10 Benign paroxysmal vertigo, unspecified ear (principal); H83.02 Labyrinthitis, left ear; R53.1 Weakness; R81 Glycosuria; E11.9 Type 2 diabetes mellitus without complications; E78.00 Pure hypercholesterolemia, unspecified; I11.9 Hypertensive heart disease without heart failure; I25.10 Atherosclerotic heart disease of native coronary artery without angina pectoris; Z79.02 Long term (current) use of antithrombotics/antiplatelets; Z79.82 Long term (current) use of aspirin; Z79.84 Long term (current) use of oral hypoglycemic drugs; Z79.899 Other long term (current) drug therapy; Z88.5 Allergy status to narcotic agent; Z95.1 Presence of aortocoronary bypass graft; Z20.822 Contact with and (suspected) exposure to COVID-19
CPT/HCPCS: 99285; 96374; 71045; 96375; 87426; 82550; 83735; 80053; 85025; 87804 ×2; 81001; 36415; 93005; J2919; J2405

== ENCOUNTER 2025-01-10 18:47 | Observation (INO) | payer OTHER, MEDICARE ==
[~2025-01-10] VITALS: Ht 160 cm; Wt 68.0 kg
[~2025-01-10 18:47] MED LIST changes: +ONDA-243 PO
[2025-01-10 19:24] LABS: BASOPHILS # (AUTO) 0.03 K/uL (0.00-0.20); BASOPHILS % (AUTO) 0.3 % (0.0-5.0); EOSINOPHILS # (AUTO) 0.05 K/uL (0.00-0.70); EOSINOPHILS % (AUTO) 0.5 % (0.0-8.0); HEMATOCRIT 34.5 % (36-48); IMMATURE GRANULOCYTE ABSOLUTE 0.04 K/uL (0-1); LYMPHOCYTES # (AUTO) 0.6 K/uL (1.0-4.8); LYMPHOCYTES % (AUTO) 5.7 % (21.0-51.0); MEAN CORPUSCULAR HEMOGLOBIN 21.3 pg (27.0-33.0); MEAN CORPUSCULAR VOLUME 73.4 fL (79-99); MONOCYTES # (AUTO) 0.6 K/uL (0.1-1.0); MONOCYTES % (AUTO) 5.6 % (3.0-13.0); NEUTROPHILS # (AUTO) 8.5 K/uL (1.8-7.7); NEUTROPHILS % (AUTO) 87.5 % (40.0-77.0); PLATELET COUNT (AUTO) 199 K/uL (130-400); RED CELL DISTRIBUTION WIDTH 16.9 % (11.0-15.5); WHITE BLOOD COUNT (AUTO) 9.8 K/uL (4.8-10.8)
[2025-01-10 19:39] LABS: CREATININE 0.8 mg/dL (0.5-1.0); POTASSIUM 3.7 mmol/L (3.5-5.1)
--- NOTE | 2025-01-10 20:28 | ERN ---
ED Note History of Present Illness Stated Complaint: UNRESPONSIVE Chief Complaint: Hypoglycemia Time Seen by MD: 19:13 Dictation: This is an 84-year-old female who was found unresponsive by family members today and EMS was activated. They also confirmed that the patient was not responsive and her Accu-Chek initially was 27. After an amp of D50 and starting her on D5 water she became more alert at presentation to ER her sugar was 251. No history of any fever chills or rigors. No history of any trauma fall . Temperature 98.7 pulse 68 respirations 16 blood pressure 122/67 with a pulse oximetry of 94% on room air Her chronic medical problems include diabetes mellitus, stroke, coronary artery disease status post CABG, hypertension, hypercholesterolemia, hypothyroidism Allergies: Coded Allergies: morphine (Unverified Allergy, Intermediate, 11/14/23) No Known Drug Allergies (Verified Allergy, Unknown, 12/27/18) Home Meds Active Scripts Ondansetron (Ondansetron Odt) 4 Mg Tab.rapdis, 4 MG PO Q6HPRN PRN for nausea, #16 TAB 0 Refills Prov:MIKE CARUSO NP 11/17/24 Methylprednisolone (Medrol) 4 Mg Tab.ds.pk, 1 TAB PO AD for 6 Days, #21 TAB 0 Refills 6 on day 1 then reduce by one tablet daily until gone Prov:MIKE CARUSO NP 11/17/24 Meclizine HCl (Meclizine HCl) 25 Mg Tablet, 25 MG PO TID for vertigo, #30 TAB 0 Refills Prov:MIKE CARUSO NP 11/17/24 Meclizine HCl (Meclizine HCl) 25 Mg Tablet, 25 MG PO TID for vertigo, #30 TAB 0 Refills Prov:MIKE CARUSO NP 11/14/23 Methylprednisolone (Medrol) 4 Mg Tab.ds.pk, 4 MG PO , #1 UNIT Prov:MIKE CARUSO NP 11/14/23 Cephalexin Monohydrate (Keflex) 500 Mg Cap, 500 MG PO TID for 7 Days, #21 CAP 0 Refills Prov:SUSAN HAIDER MD 02/12/23 Nitrofurantoin/Nitrofuran Mac (Macrobid) 100 Mg Cap, 1 CAP PO BID for 7 Days, #14 CAP 0 Refills Prov:PABLO RUELAS 10/21/22 Ticagrelor (Brilinta) 90 Mg Tablet, 90 MG PO BID for 30 Days, #30 TAB 2 Refills Prov:DONTE ALVES MD 05/21/19 Potassium Chloride (K-Dur/Klor-Con) 20 Meq Ertab, 20 MEQ PO BID for 30 Days, #60 TAB.EC 0 Refills Prov:DONTE ALVES MD 05/21/19 Metoprolol Tartrate (Lopressor) 25 Mg Tab, 12.5 MG PO BID for 30 Days, #30 TAB 3 Refills Prov:DONTE ALVES MD 05/21/19 Furosemide (Lasix 20Mg Tab) 20 Mg Tablet, 20 MG PO BID@ for 30 Days, #60 TAB 0 Refills Prov:DONTE ALVES MD 05/21/19 Atorvastatin Calcium (Atorvastatin Calcium) 20 Mg Tablet, 20 MG PO HS for 30 Days, #30 TAB 3 Refills Prov:DONTE ALVES MD 05/21/19 Aspirin (Aspirin EC) 325 Mg Tablet.dr, 325 MG PO DAILY for 30 Days, #30 TAB Prov:DONTE ALVES MD 05/21/19 Reported Medications Esomeprazole Magnesium (Esomeprazole Magnesium) 40 Mg Capsule.dr, 40 MG PO DAILY, CAP 04/17/19 Theophylline Anhydrous (Theophylline) 400 Mg Tablet.er, 400 MG PO HS, TAB 04/17/19 Buspirone HCl (Buspirone HCl) 5 Mg Tablet, 5 MG PO BID, TAB 04/17/19 Metformin HCl (Metformin HCl) 500 Mg Tablet, 1000 MG PO BID, TAB 04/17/19 Sertraline HCl (Sertraline HCl) 25 Mg Tablet, 25 MG PO DAILY, TAB 04/17/19 Umeclidinium Brm/Vilanterol Tr (Anoro Ellipta 62.5-25 Mcg INH) 1 Each Disk.w.dev, 1 EACH IH DAILY, DISK 04/17/19 Insulin Detemir (Levemir Flextouch) 100 Unit/1 Ml Insuln.pen, 55 UNIT SQ HS, SYRINGE 12/28/18 Insulin Lispro (Humalog) 100 Unit/1 Ml Insuln.pen, 15 UNITS SQ BIDMEALS, SYRINGE 12/28/18 Albuterol Sulfate (Proair Hfa) 8.5 Gm Hfa.aer.ad, 2 PUFF IH TID 12/28/18 Levothyroxine Sodium (Levothyroxine Sodium) 125 Mcg Tablet, 125 MCG PO ACBKFST, TAB 12/28/18 Tramadol Hcl (Tramadol HCl) 50 Mg Tablet, 50 MG PO TID PRN for PAIN LEVEL 6 TO 10, TAB 12/28/18 Past Medical History Past Medical History: Anxiety, Depression, Diabetes-Type II, Stroke Additional Past Medical Hx: PARAPLEGIA, NEUROPATHY, BEHAVIORAL Surgical History: Unknown Family History: Negative Social History: Negative, Other History: Not Applicable RN Note Reviewed/Agreed w/PFSH: Yes Review of System Dictation Constitutional: Negative for fever,chills, and weight loss Eyes: Negative for injury, pain,redness, and discharge ENT: Negative for injury,pain or swelling Cardiovascular: Negative for chest pain, palpitations, and edema Respiratory: Negative for shortness of breath, cough, and wheezing, Abdomen/GI: Negative for abdominal pain, nausea, vomiting, diarrhea, and constipation Back: Negative for injury and pain : Negative for injury, bleeding and discharge MS/Extremity: Negative for injury and deformity Skin: Negative for rash, and discoloration Neuro: Negative for headache, weakness, numbness, tingling, and seizure Psych: Negative for suicide ideation, homicidal ideation, and hallucinations Initial Vital Sign VS Vital Signs Date Time Temp Pulse Resp B/P (MAP) Pulse Ox O2 Delivery O2 Flow Rate FiO2 01/10/25 18:48 68 16 122/67 94 Room Air 0 01/10/25 19:50 98.1 21 Physical Exam Dictation General: awake, alert, NAD Head/Face: Normocephalic, atraumatic Eyes: PERRL, EOMI, vision at baseline ENT: oral cavity clear, TMs clear, no signs of infection Neck: Trachea midline, supple, no nuchal rigidity Cardiovascular: RRR, normal S1/S2, No MRGs, no JVD Respiratory: CTAB, no respiratory distress, No rales or wheezes Abdomen: Soft, non-tender, non-distended, normal bowel sounds, no guarding or rebound. Skin: Warm, dry, normal turgor, no rash MS/Extremity: Pulses equal, no cyanosis, neurovascular intact, FROM Neuro: COAx4, GCS 15, strength 5/5, CN 2-12 intact, normal cerebellar exam, normal gait, Psych: Normal behavior, mood, and affect normal Extremities-trace edema without any palpable cords, Homans sign is negative Results (Laboratory/Radiology) Laboratory/Radiology Laboratory Tests Test 01/10/25 19:15 White Blood Count 9.8 K/uL (4.8-10.8) Red Blood Count 4.70 MIL/uL (4.00-5.50) Hemoglobin 10.0 g/dL (12.0-16.0) L Hematocrit 34.5 % (36-48) L Mean Corpuscular Volume 73.4 fL (79-99) L Mean Corpuscular Hemoglobin 21.3 pg (27.0-33.0) L Mean Corpuscular Hemoglobin Concent 29.0 g/dL (32.0-36.0) L Red Cell Distribution Width 16.9 % (11.0-15.5) H Platelet Count 199 K/uL (130-400) Mean Platelet Volume 11.0 fL (7.5-10.5) H Immature Granulocyte % (Auto) 0.4 % (0-1) Neutrophils (%) (Auto) 87.5 % (40.0-77.0) H Lymphocytes (%) (Auto) 5.7 % (21.0-51.0) L Monocytes (%) (Auto) 5.6 % (3.0-13.0) Eosinophils (%) (Auto) 0.5 % (0.0-8.0) Basophils (%) (Auto) 0.3 % (0.0-5.0) Neutrophils # (Auto) 8.5 K/uL (1.8-7.7) H Lymphocytes # (Auto) 0.6 K/uL (1.0-4.8) L Monocytes # (Auto) 0.6 K/uL (0.1-1.0) Eosinophils # (Auto) 0.05 K/uL (0.00-0.70) Basophils # (Auto) 0.03 K/uL (0.00-0.20) Absolute Immature Granulocyte (auto 0.04 K/uL (0-1) Nucleated Red Blood Cells 0.0 % (0.0-0.19) White Cell Morphology Comment See comments Red Blood Cell Morphology See comments Sodium Level 137 mmol/L (136-145) Potassium Level 3.7 mmol/L (3.5-5.1) Chloride Level 103 mmol/L (101-111) Carbon Dioxide Level 30 mmol/L (21-32) Blood Urea Nitrogen 19 mg/dL (7-18) H Creatinine 0.8 mg/dL (0.5-1.0) Glomerular Filtration Rate Calc 73 mL/min (>90) Random Glucose 162 mg/dL (70-105) H Lactic Acid Level 1.3 mmol/L (0.8-2.5) Total Calcium 8.8 mg/dL (8.5-10.1) Total Creatine Kinase 35 U/L (21-232) # Troponin I High Sensitivity 14 ng/L (4-50) Labs Reviewed?: Yes Ultrasound Comment: Echocardiogram Conclusion EF 50% by biplane. Akinesia of mid and apical septal segments. Grade I diastolic dysfunciton with elevated mean left ventricular pressure. Normal LV size with diastolic deformity of mid and apical septum. There is mild concentric left ventricular hypertrophy. DICTATED BY: YUSUF LEWIS MD DATE: 02/15/22 1347 ED Course ED Course Orders Procedure Category Date Status Time Cbc With Differential LAB 01/10/25 Complete 18:53 Blood Cult SAVANNA 01/10/25 In Process 18:53 Urinalysis Profile LAB 01/10/25 Logged 18:53 Culture Urine SAVANNA 01/10/25 Logged 18:53 Creatine Kinase, Total LAB 01/10/25 Complete 18:53 Troponin I High LAB 01/10/25 Complete Sensitivity 18:53 Lactic Acid LAB 01/10/25 Complete 18:53 Basic Metabolic Panel LAB 01/10/25 Complete 18:53 12 Lead Ekg Tracing- EKG 01/10/25 Logged Technical 19:16 Chest 1vw RAD 01/10/25 Resulted 20:23 Edm Admit Bridge Order ADM 01/10/25 Transmitted 22:59 Vital Signs Date Time Temp Pulse Resp B/P (MAP) Pulse Ox O2 Delivery O2 Flow Rate FiO2 01/10/25 19:50 98.1 75 16 110/50 97 Room Air* 0 21 01/10/25 18:48 68 16 122/67 94 Room Air 0 We will perform diagnostic labs, advanced imaging and administer medications according to the patient's complaint. Once the results are available, will review and personally interpreted the labs to rule out any acute life-thr eatening emergency the trach require immediate intervention and treatment. I will then re-evaluate the patient after treatment and diagnostic exams have return to determine whether the patient requires any further testing, can safely be discharged home or need further admission to hospital for additional treatment and evaluation. CBC showed a white count of 9.8 hemoglobin of 10 platelet count 199 BNP 7 was relatively within normal limits with a blood glucose of 162 Urinalysis and chest x-ray are pending I discussed with the granddaughter and updated her on preliminary tests that were not very significant and the possibility of patient Ms. Calculating the insulin dosing is certainly likely. Cultures are all pending at this time. I recommended admission to the hospital for observation and determination of whether patient is capable of taking care of herself and also to adjust the ins ulin dosing. They are agreeable 11:06 p.m.-patient accepted by [facility] hospitalist group mid-level provider Krystina, to be admitted to Dr. Whitlock. Medical Decision Making MDM MDM: Differential diagnosis: Acute metabolic encephalopathy secondary to hypoglycemia, underlying sepsis, dehydration, inappropriate insulin dosing due to being advanced age Rationale: Tests considered and ordered secondary to shared decision making include: labs, ECG and radiology Previous outside records reviewed: Old ER visits. Risk of complication and/or morbidity or mortality of patient management: None Medications-Per medication reconciliation Need for hospitalization: Patient does meet criteria for hospitalization. Need for emergency major/minor surgery: No There are no social concerns with this patient. Prescription drug management Prescriptions will include symptomatic care Patient's prior external medical records from other ER visits were reviewed by me as indicated. Prior testing and results from previous visits were reviewed. Prior tests were taken into account with medical decision making and resource utilization, independent historian/historians were used to obtain complete medical history. I independently interpreted the test that were performed, results were reviewed by me and considered findings on radiology if ordered. Medical management and examination interpretation discussions were had by me with other qualified healthcare professionals as indicated for the patient's care. Problem List Problem List: (1) Acute metabolic encephalopathy due to hypoglycemia (2) Insulin-requiring or dependent type II diabetes mellitus (3) Iron deficiency anemia DX & DISP Disposition: Inpatient Decision to Admit Time: 23:04 Departure Impression: Primary Impression: Acute metabolic encephalopathy due to hypoglycemia Additional Impressions: Insulin-requiring or dependent type II diabetes mellitus, Iron deficiency anemia Condition: Stable Additional Instructions: Patient was informed of all the diagnostic labs and procedures conducted in the emergency room today and demonstrated understanding of the results. I personally reviewed and interpreted all the diagnostic exams performed in the ER today. The patient will be admitted to the hospital for further treatment and evaluation. Disposition-admit to facility Condition-stable/guarded Course-uncertain at this time Pain status-decreased Assessment-exam unchanged Admission Certification- I certify that the patients status is appropriate and is based on my best clinical judgment and the patient's condition as documented in the medical records Referrals: SLOO ROTHMAN DO (PCP) MIKA BONILLA MD Jan 10, 2025 20:28
--- NOTE | 2025-01-10 21:08 | HMCIMG ---
INDICATION: AMS at presentation TECHNIQUE: CHEST 1VW COMPARISON: 11/17/2024 FINDINGS AND IMPRESSION: Prominent bilateral interstitial markings which may represent bronchitis or vascular congestion in the proper clinical setting. Sternotomy wires are again noted. Cardiac silhouette is within normal limits. Mild degenerative changes of the spine. The visualized upper abdomen appears unremarkable.
[2025-01-11] MEDS ORDERED: acetaMINOPHEN 650 MG SUPPOSITORY RC PRN (01:30)
[2025-01-11] MEDS ORDERED: ondanSETRON 4MG INJ IVP PRN (01:30)
[2025-01-11] MEDS ORDERED: ALBUTEROL 0.083% 2.5 MG/3 ML INH IH PRN (01:30)
[2025-01-11] MEDS ORDERED: hydrALAZine 20MG/ML VIAL IV PRN (01:30)
[2025-01-11] MEDS ORDERED: acetaMINOPHEN 325 MG TAB PO PRN (01:30)
[2025-01-11] MEDS ORDERED: LAbetaLOL 20MG SYG IV PRN (01:30)
[2025-01-11 02:28] VITALS: PULSE 72; RESP 18; O2SAT 97
[2025-01-11 02:29] VITALS: O2SAT 97
[2025-01-11 03:10] LABS: ADD UA MICROSCOPIC YES
[2025-01-11 03:12] LABS: APPEARANCE,URINE CLEAR (CLEAR); BACTERIA,URINE RARE /HPF (None Seen); BILIRUBIN,URINE NEGATIVE (NEGATIVE); COLOR,URINE LIGHT-YELLOW (YELLOW); GLUCOSE, URINE (UA) >=1000 mg/dL (NEGATIVE); KETONES,URINE NEGATIVE (NEGATIVE); LEUKOCYTE ESTERASE ,URINE 25 Leu/uL (NEGATIVE); MUCUS,URINE RARE LPF (None Seen); NITRATE,URINE NEGATIVE (NEGATIVE); OCCULT BLOOD,URINE NEGATIVE (NEGATIVE); PH,URINE 5.5 (5.0-8.0); PROTEIN,URINE NEGATIVE (NEGATIVE); SQUAMOUS EPITHELIAL CELL,UR RARE /HPF (0-2); UROBILINOGEN,URINE 0.2 mg/dL (0.2-1.0)
[2025-01-11] MEDS ORDERED: APIX5TAB PO (05:22)
[2025-01-11] MEDS ORDERED: GABA300C PO (05:22)
[2025-01-11] MEDS ORDERED: INSU100V45 SQ (05:22)
[2025-01-11] MEDS ORDERED: ROSU5TAB51 PO (05:22)
[2025-01-11] MEDS ORDERED: INSLAN SQ (05:22)
[2025-01-11] MEDS ORDERED: BUSP30TA2 PO (05:22)
[2025-01-11 07:22] VITALS: RESP 18; O2SAT 97
[2025-01-11] MEDS: INSULIN humuLIN R 100 UNIT/ML 3ML SQ SCH (07:30)
[2025-01-11] MEDS: ENOXAPARIN SODIUM 40 MG/0.4 ML SYRINGE SQ SCH (08:36)
[2025-01-11] MEDS: ASCORBIC ACID 500 MG TAB PO SCH (08:36)
[2025-01-11] MEDS: FAMOTIDINE 20MG TAB PO SCH (08:36)
--- NOTE | 2025-01-11 13:08 | EKG ---
[facility] Test Date: 2025-01-10 Test Time: 19:32:47 Pat Name: JUANITA CONNORS Department: [facility] Room: ED 10 Gender: F Waste Baler: 1081 : 1940 Requested By: MIKA BONILLA Order Number: [id number] Reading MD: Bg Martinez Measurements Intervals Elizabeth Rate: 71 P: 35 [place]: 184 QRS: -16 QRSD: 80 T: 134 QT: 391 QTc: 426 Interpretive Statements Sinus rhythm Inferior infarct, old Probable anterior infarct, age indeterminate Compared to ECG 11/17/2024 16:47:48 No significant changes Electronically Signed On 01-11-2025 13:40:02 CDT by Bg Martinez Please click the below link to view image of tracing.
[2025-01-11] MEDS ORDERED: GABAPENTIN 300 MG CAPSULE PO PRN (15:00)
--- NOTE | 2025-01-11 15:18 | HP ---
[facility] HISTORY & PHYSICAL Date Patient Seen: Jan 11, 2025 Time of Visit: 14:55 Supervising Physician:NAHID COLON MD Primary Care Physician: RAMONA Gonzales MD Outpatient Specialists: DR LEWIS-ELECTRONIC TESTER Inpatient Consults: [ ] PROBLEM LIST: Acute Metabolic Encephalopathy, resolved Acute Hypoglycemia ,suspected secondary to polypharmacy Coronary artery disease history of CABG stable Diabetes mellitus type 2 Hypertension Hyperlipidemia Bed ridden status Severe polyneuropathy hx of CVA hx of DVT on Eliquis HPI: This is a case of an 84-year-old woman with a past medical history of coronary artery disease status post remote CABG, diabetes mellitus type 2, uncontrolled, hypertension, hyperlipidemia, severe polyneuropathy and has been bed ridden for over three years that presented secondary to an episode of unresponsiveness. Apparently the patient was doing well and was in her usual state of health, had dinner at about 5:00 p.m. and walked to her room to take a nap when she was suddenly woken up by her daughter and was told she was unresponsive, EMS was called and patient was noted to have a blood sugar level of 27. Patient was given D5W and an amp of D50 and her blood sugar level improved to 251. Patient was transferred to the hospital for further evaluation and workup. Currently the patient takes multiple diabetic medications that include Jlxmix05 units q.h.s., insulin vqiwnn43 units b.i.d., metformin 1000 mg b.i.d., and Jardiance 10 mg daily. The patient does admit that she occasionally forgets her doses and her daughter is the person who assists her in which medications to take. Does not have home health nurse. During the episode encephalopathy the patient states that she did not have any chest pain, did not have any vision changes, in no palpitations, no presyncope. She denies any shortness of breath. No recent illnesses. Has not seen her primary care physician in the office for several months as she does telemedicine visits. The last time she saw her silver cleaner was one year ago and since then has been on Eliquis, for with daughter states was a clot in her left leg. Both patient and daughter are rather poor historians and obtaining adequate medical history is not possbile. They deny any injury to spinal chord, no prior lumbar spine surgeries , She is able to move lower extremities but has bilateral "numbness" since her CABG and therefore does not walk . PAST MEDICAL HX: see above PAST SURGICAL HX: CABG SOCIAL HISTORY: No tobacco, ETOH, or illicit drug use Lives with daughter Coded Allergies: morphine (Unverified Allergy, Intermediate, 11/14/23) No Known Drug Allergies (Verified Allergy, Unknown, 12/27/18) REVIEW OF SYSTEMS: 12 point ROS reviewed with patient. Pertinent positives mentioned above. Otherwise negative. PHYSICAL EXAM: GENERAL: alert, weak, awake oriented x 3 HEENT: EOMI, Sclera non icteric, moist mucosa NECK: Supple, no JVD, trachea midline LUNGS: Clear breath sounds bilaterally. No wheezes HEART: Regular rate and rhythm. Normal S1 and S2, without murmurs ABD: Abdomen soft, nontender. Bowel sounds present EXT: No clubbing cyanosis or edema, sensation diminished, normal capillary refill, normal pulse DP bilaterally , strength 3/5 bilateral LE NEURO: Alert and oriented to person, follows commands Vital Signs (last 8hr) Date Time Temp Pulse Resp B/P (MAP) Pulse Ox O2 Delivery O2 Flow Rate FiO2 01/11/25 13:19 64 17 140/55 96 Room Air* 0 21 01/11/25 07:48 98.1 75 18 163/61 97 Room Air* 0 21 01/11/25 07:22 18 N/A Room Air 21 LABS: Hematology Labs: Test 01/10/25 19:15 Range/Units White Blood Count 9.8 4.8-10.8 K/uL Red Blood Count 4.70 4.00-5.50 MIL/uL Hemoglobin 10.0 L 12.0-16.0 g/dL Hematocrit 34.5 L 36-48 % Mean Corpuscular Volume 73.4 L 79-99 fL Mean Corpuscular Hemoglobin 21.3 L 27.0-33.0 pg Mean Corpuscular Hemoglobin Concent 29.0 L 32.0-36.0 g/dL Red Cell Distribution Width 16.9 H 11.0-15.5 % Platelet Count 199 130-400 K/uL Mean Platelet Volume 11.0 H 7.5-10.5 fL Immature Granulocyte % (Auto) 0.4 0-1 % Neutrophils (%) (Auto) 87.5 H 40.0-77.0 % Lymphocytes (%) (Auto) 5.7 L 21.0-51.0 % Monocytes (%) (Auto) 5.6 3.0-13.0 % Eosinophils (%) (Auto) 0.5 0.0-8.0 % Basophils (%) (Auto) 0.3 0.0-5.0 % Neutrophils # (Auto) 8.5 H 1.8-7.7 K/uL Lymphocytes # (Auto) 0.6 L 1.0-4.8 K/uL Monocytes # (Auto) 0.6 0.1-1.0 K/uL Eosinophils # (Auto) 0.05 0.00-0.70 K/uL Basophils # (Auto) 0.03 0.00-0.20 K/uL Absolute Immature Granulocyte (auto 0.04 0-1 K/uL Nucleated Red Blood Cells 0.0 0.0-0.19 % White Cell Morphology Comment See comments Red Blood Cell Morphology See comments Chemistry Labs: Test 01/11/25 11:10 01/11/25 08:00 01/10/25 19:15 Range/Units Whole Blood Glucose 401 #*H 70-110 MG/DL Bedside Glucose Comment Notified Nurse Ammonia < 10 L 11-32 umol/L Sodium Level 137 136-145 mmol/L Potassium Level 3.7 3.5-5.1 mmol/L Chloride Level 103 101-111 mmol/L Carbon Dioxide Level 30 21-32 mmol/L Blood Urea Nitrogen 19 H 7-18 mg/dL Creatinine 0.8 0.5-1.0 mg/dL Glomerular Filtration Rate Calc 73 >90 mL/min Random Glucose 162 H 70-105 mg/dL Lactic Acid Level 1.3 0.8-2.5 mmol/L Total Calcium 8.8 8.5-10.1 mg/dL Total Creatine Kinase 35 # 21-232 U/L Troponin I High Sensitivity 14 4-50 ng/L DIAGNOSTICS / RADIOLOGY RESULTS: [ ] PLAN Stop her home medical DM Regimen , ISS 1/2 , D5 will be stopped as she is tolerating po and glucose levels improved Endocrinology consultation REcommend SNF then home [facility] arrangement for weekly nursing visits to assist with medications / glucose logs. pt/ot consultation Resume home medications for CAD , DVT hx , and neuropathy NEURO: Minimize central acting medications as possible. Maintain fall precautions, adequate lighting during the day PULMONARY: Supplemental 02 as needed. Maintain aspiration precautions at all times CARDIOVASCULAR: Follow hemodynamics. Vital signs per facility protocol GI & NUTRITION: Continue with nutritional support. Continue stool softeners and laxatives as needed. KIDNEYS & ELECTROLYTES: Strict monitoring of intake, output and overall fluid balance. Avoid nephrotoxic medications to the extent possible. Medications to be dosed according to renal function. Monitor electrolytes and replace as needed ENDOCRINE: Maintain blood glucose between 100-180 at all times. Hypoglycemia protocol in place INFECTIOUS DISEASE: Trend temperature, WBC and procalcitonin level Follow cultures, deescalate antibiotics as soon as possible. Panculture if new onset fever ONCOLOGY/HEMATOLOGY/COAGULATION: Monitor for s/s of bleeding Monitor hemoglobin, coagulation studies as needed SKIN: Pressure ulcer prevention per facility protocol Specialty mattress ORTHO/REHAB: Continue PT/OT Prophylaxis: Continue GI and DVT prophylaxis Code Status: Full Resuscitation Disposition: recomend SNF Other: Total patient care time exceeds 35 minutes excluding all procedures. HIMA ONEIL Jan 11, 2025 15:18
[2025-01-11] MEDS ORDERED: GLUCAGON 1MG KIT 1 MG ML IM PRN (15:30)
[2025-01-11] MEDS ORDERED: DEXTROSE 50%-WATER 50 ML DISP.SYRIN IV PRN (15:30)
[2025-01-11] MEDS: furoSEMIDE 20 MG TABLET PO SCH (17:27)
--- NOTE | 2025-01-11 19:53 | HMCIMG ---
US VENOUS DOPPLER BILATERAL HISTORY: DVT COMPARISON: None TECHNIQUE: Bilateral lower extremity venous Doppler ultrasound study was performed. FINDINGS: Study is limited due to patient's underlying condition. The common femoral, femoral, popliteal, and posterior tibial veins are visualized. Normal flow with compressibilities are demonstrated. The greater saphenous veins are also seen and grossly patent. IMPRESSION: 1. No evidence of deep venous thrombosis is seen. Limited study.
[2025-01-11] MEDS: BUSPIRONE HCL PO SCH (21:00)
[2025-01-11] MEDS: APIXaban 5 MG TABLET PO SCH (21:37)
[2025-01-11 22:43] VITALS: PULSE 83; RESP 18; O2SAT 95
[2025-01-12] MEDS: traMADol HCL 50 MG TABLET PO PRN (04:06)
--- NOTE | 2025-01-12 07:30 | CONS ---
CONSULT NOTE: endocrinology consult chief complaint: unresponsiveness and hypoglycemia reason for consult: dm-2 and hypoglycemia Date Patient Seen: Jan 12, 2025 HPI: This is a case of an 84-year-old woman with a past medical history of coronary artery disease status post remote CABG, diabetes mellitus type 2, uncontrolled, hypertension, hyperlipidemia, severe polyneuropathy and has been bed ridden for over three years that presented secondary to an episode of unresponsiveness. Apparently the patient was doing well and was in her usual state of health, had dinner at about 5:00 p.m. and walked to her room to take a nap when she was suddenly woken up by her daughter and was told she was unresponsive, EMS was called and patient was noted to have a blood sugar level of 27. Patient was given D5W and an amp of D50 and her blood sugar level improved to 251. Patient was transferred to the hospital for further evaluation and workup. Currently the patient takes multiple diabetic medications that include Xhdidw97 units q.h.s., insulin units b.i.d., metformin 1000 mg b.i.d., and Jardiance 10 mg daily. The patient does admit that she occasionally forgets her doses and her daughter is the person who assists her in which medications to take. Does not have home health nurse. During the episode encephalopathy the patient states that she did not have any chest pain, did not have any vision changes, in no palpitations, no presyncope. She denies any shortness of breath. No recent illnesses. Has not seen her primary care physician in the office for several months as she does telemedicine visits. The last time she saw her outpatient physical therapist assistant was one year ago and since then has been on Eliquis, for with daughter states was a clot in her left leg. hx of r CABG she does not check glucose regularly.diabetic medications that include Prjijw83 units q.h.s., insulin imlpkw66 units b.i.d., metformin 1000 mg b.i.d., and Jardiance 10 mg daily. PAST MEDICAL HX: see above PAST SURGICAL HX: CABG SOCIAL HISTORY: No tobacco, ETOH, or illicit drug use Lives with daughter Coded Allergies: morphine (Unverified Allergy, Intermediate, 11/14/23) No Known Drug Allergies (Verified Allergy, Unknown, 12/27/18) REVIEW OF SYSTEMS: 12 point ROS reviewed with patient. Pertinent positives mentioned above. Otherwise negative. PHYSICAL EXAM: GENERAL: alert, weak, awake oriented x 3 HEENT: EOMI, Sclera non icteric, moist mucosa NECK: Supple, no JVD, trachea midline LUNGS: Clear breath sounds bilaterally. No wheezes HEART: Regular rate and rhythm. Normal S1 and S2, without murmurs ABD: Abdomen soft, nontender. Bowel sounds present EXT: No clubbing cyanosis or edema, sensation diminished, normal capillary refill, normal pulse DP bilaterally , strength 3/5 bilateral LE NEURO: Alert and oriented to person, follows commands DIAGNOSTICS / RADIOLOGY RESULTS: PROBLEM LIST: severe Hypoglycemia ,suspected secondary to high dose insulin she does not check glucose regularly.diabetic medications that include Nensqb33 units q.h.s., insulin iomlsl38 units b.i.d., metformin 1000 mg b.i.d., and Jardiance 10 mg daily. Diabetes mellitus type 2 Acute Metabolic Encephalopathy, resolved Coronary artery disease history of CABG stable Hypertension Hyperlipidemia Bed ridden status Severe polyneuropathy hx of CVA hx of DVT on Eliquis Plan: monitor glucose q x 4 hourly. start lantus 10 units daily start low dose ssi recommend to decrease tresiba to 30 units daily and humalog to 10 units before meals at discharge. ok to resume home po diabetic meds at discharge. revisit with me in clinic in 1 week thanks for allowing me to particpate in patient care and will continue to follow up. Vital Signs 01/12/25 04:15 Temp 98.4 Pulse 77 Resp 16 B/P (MAP) 104/46 Pulse Ox 95 O2 Delivery Room Air* O2 Flow Rate 0 FiO2 21 Hematology Labs: Test 01/10/25 19:15 Range/Units White Blood Count 9.8 4.8-10.8 K/uL Red Blood Count 4.70 4.00-5.50 MIL/uL Hemoglobin 10.0 L 12.0-16.0 g/dL Hematocrit 34.5 L 36-48 % Mean Corpuscular Volume 73.4 L 79-99 fL Mean Corpuscular Hemoglobin 21.3 L 27.0-33.0 pg Mean Corpuscular Hemoglobin Concent 29.0 L 32.0-36.0 g/dL Red Cell Distribution Width 16.9 H 11.0-15.5 % Platelet Count 199 130-400 K/uL Mean Platelet Volume 11.0 H 7.5-10.5 fL Immature Granulocyte % (Auto) 0.4 0-1 % Neutrophils (%) (Auto) 87.5 H 40.0-77.0 % Lymphocytes (%) (Auto) 5.7 L 21.0-51.0 % Monocytes (%) (Auto) 5.6 3.0-13.0 % Eosinophils (%) (Auto) 0.5 0.0-8.0 % Basophils (%) (Auto) 0.3 0.0-5.0 % Neutrophils # (Auto) 8.5 H 1.8-7.7 K/uL Lymphocytes # (Auto) 0.6 L 1.0-4.8 K/uL Monocytes # (Auto) 0.6 0.1-1.0 K/uL Eosinophils # (Auto) 0.05 0.00-0.70 K/uL Basophils # (Auto) 0.03 0.00-0.20 K/uL Absolute Immature Granulocyte (auto 0.04 0-1 K/uL Nucleated Red Blood Cells 0.0 0.0-0.19 % White Cell Morphology Comment See comments Red Blood Cell Morphology See comments Chemistry Labs: Test 01/12/25 02:58 01/11/25 11:10 01/11/25 08:00 01/10/25 19:15 Range/Units Whole Blood Glucose 111 H 70-110 MG/DL Bedside Glucose Comment Notified Nurse Ammonia < 10 L 11-32 umol/L Sodium Level 137 136-145 mmol/L Potassium Level 3.7 3.5-5.1 mmol/L Chloride Level 103 101-111 mmol/L Carbon Dioxide Level 30 21-32 mmol/L Blood Urea Nitrogen 19 H 7-18 mg/dL Creatinine 0.8 0.5-1.0 mg/dL Glomerular Filtration Rate Calc 73 >90 mL/min Random Glucose 162 H 70-105 mg/dL Lactic Acid Level 1.3 0.8-2.5 mmol/L Total Calcium 8.8 8.5-10.1 mg/dL Total Creatine Kinase 35 # 21-232 U/L Troponin I High Sensitivity 14 4-50 ng/L Current Medications Medications (Trade) Dose Ordered Sig/Ava Route Start Time Stop Time Status Last Admin Dose Admin Apixaban (EliquIS) 5 mg BID PO 01/11/25 21:00 02/10/25 20:59 01/11/25 21:37 5 MG Ascorbic Acid (Vitamin C 500mg Tab) 500 mg DAILY PO 01/11/25 09:00 02/10/25 08:59 01/11/25 08:36 500 MG Atorvastatin Calcium (LIPItor 10MG) 10 mg QODAY PO 01/13/25 09:00 02/12/25 08:59 Enoxaparin Sodium (Lovenox) 40 mg DAILY SQ 01/11/25 09:00 01/11/25 15:05 DC 01/11/25 08:36 40 MG Famotidine (Pepcid 20mg Tab) 20 mg BID PO 01/11/25 09:00 01/11/25 15:08 DC 01/11/25 08:36 20 MG Famotidine (Pepcid 20mg Tab) 20 mg Q24H PO 01/12/25 09:00 02/10/25 08:59 Furosemide (LASix 20MG TAB) 20 mg BID@09,17 PO 01/11/25 17:00 02/10/25 16:59 01/11/25 17:27 20 MG Home Med (Home Medication) (Buspirone HCl 1 TAB) BID PO 01/11/25 21:00 02/10/25 20:59 Insulin Human Regular (humuLIN R 100 UNIT/ML 3ML) INSULIN SLIDING SCAL... ACHS SQ 01/11/25 07:30 02/10/25 07:29 01/11/25 23:17 2 UNIT Sertraline HCl (ZOloft 50 mg tab) 25 mg DAILY PO 01/12/25 09:00 02/11/25 08:59 STEPHANIE CASAS MD Jan 12, 2025 07:30
--- NOTE | 2025-01-12 07:30 | NUR ---
DR CASAS AT BEDSIDE FOR ENDOCRINOLOGY CONSULT, STATES PT IS TAKING TO MUCH INSULIN WITHOUT CHECKING BGL. ORDERS RECIEVED ADA DIET. AND TO FOLLOW UP IN CLINIC. Addendum: 01/12/25 at 1522 by MALICK LANTUS 10 UNITS DAILY
[2025-01-12 08:05] VITALS: PULSE 80; RESP 18; O2SAT 96
[2025-01-12 08:08] LABS: BASOPHILS # (AUTO) 0.05 K/uL (0.00-0.20); BASOPHILS % (AUTO) 0.6 % (0.0-5.0); EOSINOPHILS # (AUTO) 0.21 K/uL (0.00-0.70); EOSINOPHILS % (AUTO) 2.6 % (0.0-8.0); HEMATOCRIT 36.9 % (36-48); IMMATURE GRANULOCYTE ABSOLUTE 0.02 K/uL (0-1); LYMPHOCYTES # (AUTO) 1.8 K/uL (1.0-4.8); MEAN CORPUSCULAR HEMOGLOBIN 21.1 pg (27.0-33.0); MEAN CORPUSCULAR VOLUME 72.6 fL (79-99); MONOCYTES # (AUTO) 0.5 K/uL (0.1-1.0); MONOCYTES % (AUTO) 6.4 % (3.0-13.0); NEUTROPHILS # (AUTO) 5.3 K/uL (1.8-7.7); NEUTROPHILS % (AUTO) 67.1 % (40.0-77.0); PLATELET COUNT (AUTO) 225 K/uL (130-400); RED BLOOD CELL COUNT(AUTO) 5.08 MIL/uL (4.00-5.50); RED CELL DISTRIBUTION WIDTH 17.2 % (11.0-15.5); WHITE BLOOD COUNT (AUTO) 7.9 K/uL (4.8-10.8)
[2025-01-12 08:25] LABS: MAGNESIUM 1.9 mg/dL (1.80-2.40); PHOSPHORUS 4.2 mg/dL (2.5-4.9); POTASSIUM 4.3 mmol/L (3.5-5.1)
[2025-01-12] MEDS ORDERED: CEPH500B PO (09:23)
[2025-01-12] MEDS ORDERED: INSLAN SQ (09:23)
[2025-01-12] MEDS: SERTraline HCL 50 MG TABLET PO SCH (09:48)
[2025-01-12] MEDS: FAMOTIDINE 20MG TAB PO SCH (09:48)
--- NOTE | 2025-01-12 11:46 | NUR ---
DCP -- Patient Refused SNF Patient states too anxious to answer questions; requests for Mar Soni, daughter [phone] to answer for her. Mar Soni, daughter [phone] live in [facility] [address] with a walk in shower. [facility] patient is retired and "bedridden and immobile," and remains independent. [facility] she is full assist. [facility] has two wheelchairs and a hospital bed. States Amanda Soni, Daughter/Provider [phone] has 42 hours per week with [facility]. Denies home health services and dialysis. PCP - Selin Eugene DO, [facility]. Upon discharge, Amanda Soni, Daughter/Provider [phone], will drive her home. MD MCINTYRE -- [facility] Evaluation for PT/OT; refused to sign consent for SNF, states, "does not want to go to a long term." Addendum: 01/12/25 at 1207 by BHARAT STOUT RN CM Amended: Links added.
--- NOTE | 2025-01-12 15:22 | NUR ---
DC ORDERS RECIEVED, DIGITAL FIELD SERVICE TECHNICIAN AWARE OF DC
--- NOTE | 2025-01-12 15:38 | NUR ---
[facility] CALLED AND PAPERWORK FAXED FOR NONEMERGENCY TRANSFER BACK HOME
--- NOTE | 2025-01-12 17:22 | DS ---
[facility] DISCHARGE SUMMARY Date Patient Seen: Jan 12, 2025 Time of Visit: 17:19 Supervising Physician: DARLENE WHITFIELD Primary Care Physician: RAMONA Gonzales MD Outpatient Specialists: DR LEWIS-SOFTWARE ENGINEER BACKEND Inpatient Consults: [ ] PROBLEM LIST: Acute Metabolic Encephalopathy, resolved Acute Hypoglycemia ,suspected secondary to polypharmacy ,RESOLVED Coronary artery disease history of CABG stable Diabetes mellitus type 2 Hypertension Hyperlipidemia Bed ridden status Severe polyneuropathy hx of CVA hx of DVT on [facility] HOSPITAL COURSE: This is a case of an 84-year-old woman with a past medical history of coronary artery disease status post remote CABG, diabetes mellitus type 2, uncontrolled, hypertension, hyperlipidemia, severe polyneuropathy and has been bed ridden for over three years that presented secondary to an episode of unresponsiveness. Apparently the patient was doing well and was in her usual state of health, had dinner at about 5:00 p.m. and walked to her room to take a nap when she was suddenly woken up by her daughter and was told she was unresponsive, EMS was called and patient was noted to have a blood sugar level of 27. Patient was given D5W and an amp of D50 and her blood sugar level improved to 251. Patient was transferred to the hospital for further evaluation and workup. Currently the patient takes multiple diabetic medications that include Nsdjjg30 units q.h.s., insulin unhyht19 units b.i.d., metformin 1000 mg b.i.d., and Jardiance 10 mg daily. The patient does admit that she occasionally forgets her doses and her daughter is the person who assists her in which medications to take. Does not have home health nurse. During the episode encephalopathy the patient states that she did not have any chest pain, did not have any vision changes, in no palpitations, no presyncope. She denies any shortness of breath. No recent illnesses. Has not seen her primary care physician in the office for several months as she does telemedicine visits. The last time she saw her medical staff physician was one year ago and since then has been on Eliquis, for with daughter states was a clot in her left leg. Both patient and daughter are rather poor historians and obtaining adequate medical history is not possbile. They deny any injury to spinal chord, no prior lumbar spine surgeries , She is able to move lower extremities but has bilateral "numbness" since her CABG and therefore does not walk . Chris admitted for observation, Started on D5 later weaned due to hyperglycemia, Manager Internet consutled and Ajdustments to her regimen were made. Patient was injecting and not checking her sugars . Counseling provided, recommending Glucose log and home [facility] nurse to assist. Family updated. New Medications: Cephalexin Monohydrate (Keflex) 500 Mg Cap 1 CAP PO BID for 5 Days, #20 CAP 0 Refills Changed Medications: Insulin Glargine,Hum.rec.anlog (Lantus) 100 Unit/Ml Inj 15 UNITS SQ DAILY, #15 ML (Changed from: 55 UNITS; BIDAC) Continued Medications: Albuterol Sulfate (Proair Hfa) 8.5 Gm Hfa.aer.ad 2 PUFF IH TID Apixaban (Eliquis) 5 Mg Tablet 5 MG PO BID, TAB Buspirone HCl (Buspirone HCl) 5 Mg Tablet 5 MG PO BID, TAB Buspirone HCl (Buspirone HCl) 30 Mg Tablet 1 TAB PO BID for 30 Days, #60 TAB 0 Refills Esomeprazole Magnesium (Esomeprazole Magnesium) 40 Mg Capsule.dr 40 MG PO DAILY, CAP Furosemide (Lasix 20Mg Tab) 20 Mg Tablet 20 MG PO BID@09,17 for 30 Days, #60 TAB 0 Refills Gabapentin (Neurontin) 300 Mg Capsule 1 CAP PO [id number] PRN for PAIN for 30 Days, #90 CAP 0 Refills Levothyroxine Sodium (Levothyroxine Sodium) 125 Mcg Tablet 125 MCG PO [id number], TAB Meclizine HCl (Meclizine HCl) 25 Mg Tablet 25 MG PO TID for vertigo, #30 TAB 0 Refills Metformin HCl (Metformin HCl) 500 Mg Tablet 1000 MG PO BID, TAB Ondansetron (Ondansetron Odt) 4 Mg Tab.rapdis 4 MG PO Q6HPRN PRN for nausea, #16 TAB 0 Refills Rosuvastatin Calcium (Rosuvastatin Calcium) 5 Mg Tablet 1 TAB PO QODAY for high cholesterol for 30 Days, #30 TAB 0 Refills Sertraline HCl (Sertraline HCl) 25 Mg Tablet 25 MG PO DAILY, TAB Theophylline Anhydrous (Theophylline) 400 Mg Tablet.er 400 MG PO HS, TAB Tramadol Hcl (Tramadol HCl) 50 Mg Tablet 50 MG PO TID PRN for PAIN LEVEL 6 TO 10, TAB Umeclidinium Brm/Vilanterol Tr (Anoro Ellipta 62.5-25 Mcg INH) 1 Each Disk.w.dev 1 EACH IH DAILY, DISK Discontinued Medications: Aspirin (Aspirin EC) 325 Mg Tablet.dr 325 MG PO DAILY for 30 Days, #30 TAB Atorvastatin Calcium (Atorvastatin Calcium) 20 Mg Tablet 20 MG PO HS for 30 Days, #30 TAB 3 Refills Cephalexin Monohydrate (Keflex) 500 Mg Cap 500 MG PO TID for 7 Days, #21 CAP 0 Refills Insulin Detemir (Levemir Flextouch) 100 Unit/1 Ml Insuln.pen 55 UNIT SQ HS, SYRINGE Insulin Lispro (Humalog) 100 Unit/1 Ml Insuln.pen 15 UNITS SQ BIDMEALS, SYRINGE Insulin Lispro (Insulin Lispro) 100 Unit/Ml Vial 15 UNIT SQ BID, VIAL Meclizine HCl (Meclizine HCl) 25 Mg Tablet 25 MG PO TID for vertigo, #30 TAB 0 Refills Methylprednisolone (Medrol) 4 Mg Tab.ds.pk 4 MG PO , #1 UNIT Methylprednisolone (Medrol) 4 Mg Tab.ds.pk 1 TAB PO AD for 6 Days, #21 TAB 0 Refills 6 on day 1 then reduce by one tablet daily until gone Metoprolol Tartrate (Lopressor) 25 Mg Tab 12.5 MG PO BID for 30 Days, #30 TAB 3 Refills Nitrofurantoin/Nitrofuran Mac (Macrobid) 100 Mg Cap 1 CAP PO BID for 7 Days, #14 CAP 0 Refills Potassium Chloride (K-Dur/Klor-Con) 20 Meq Ertab 20 MEQ PO BID for 30 Days, #60 TAB.EC 0 Refills Ticagrelor (Brilinta) 90 Mg Tablet 90 MG PO BID for 30 Days, #30 TAB 2 Refills PHYSICAL EXAM: GENERAL: alert, weak, awake oriented x 3 HEENT: EOMI, Sclera non icteric, moist mucosa NECK: Supple, no JVD, trachea midline LUNGS: Clear breath sounds bilaterally. No wheezes HEART: Regular rate and rhythm. Normal S1 and S2, without murmurs ABD: Abdomen soft, nontender. Bowel sounds present EXT: No clubbing cyanosis or edema, sensation diminished, normal capillary refill, normal pulse DP bilaterally , strength 3/5 bilateral LE NEURO: Alert and oriented to person, follows commands FOLLOW-UP: Follow-up with PCP in 2-3 days [place] in 1-2 weeks RECOMMENDATIONS: See Discharge Instructions This case was seen and discussed with my supervising physician. More than 30 minutes spent on discharge process, including evaluation of the patient, discuss ion with nursing staff, medication reconciliation and follow-up appointments HIMA ONEIL Jan 12, 2025 17:22
[2025-01-12 17:31] VITALS: BP 124/76; PULSE 85; RESP 18; TEMP 98.4; O2SAT 94
--- NOTE | 2025-01-12 17:32 | NUR ---
[facility] HERE FOR TRANSPORT BACK HOME. PT AOX3 IV REMOVED, DAUGHTER CALLED AND AWARE.
[2025-01-13] MEDS ORDERED: atorVAStatin 10 MG TABLET PO SCH (09:00)
== END 2025-01-12 17:38 | disposition home or self-care (01) ==
LOC: EDH 18:47 → EDHIP 01-11 01:05
PROVIDERS: ADMIT Internal Medicine; ATTEND Internal Medicine
DX: E11.649 Type 2 diabetes mellitus with hypoglycemia without coma (principal); I25.10 Atherosclerotic heart disease of native coronary artery without angina pectoris; I10 Essential (primary) hypertension; E78.5 Hyperlipidemia, unspecified; F41.9 Anxiety disorder, unspecified; G93.41 Metabolic encephalopathy; F32.A Depression, unspecified; E11.40 Type 2 diabetes mellitus with diabetic neuropathy, unspecified; D50.9 Iron deficiency anemia, unspecified; I82.402 Acute embolism and thrombosis of unspecified deep veins of left lower extremity; R60.0 Localized edema; G82.20 Paraplegia, unspecified; Z74.01 Bed confinement status; Z86.73 Personal history of transient ischemic attack (TIA), and cerebral infarction without residual deficits; Z95.1 Presence of aortocoronary bypass graft; Z79.84 Long term (current) use of oral hypoglycemic drugs; Z86.718 Personal history of other venous thrombosis and embolism; Z79.4 Long term (current) use of insulin
CPT/HCPCS: 99285; 82550; 84484; 80048 ×2; 85025 ×2; 87040 ×2; 83605; 71045; 93005; 96372; 82140; 87086; 82948 ×7; 81001; 36415 ×2; 93970; 94664; 83735; 84100; J1815; G0378 ×40; J1650